=== PATIENT | male | born 1970 | race Caucasian/White ===

== ENCOUNTER 2024-09-07 12:07 | Inpatient (IN) | payer OTHER ==
--- NOTE | 2024-09-07 13:30 | ED ---
General Adult HPI - General Chief complaint: Arrhythmia/Palpitations Stated complaint: AFIB Time Seen by Provider: 09/07/24 12:09 Source: patient, EMS, RN notes reviewed Mode of arrival: EMS Limitations: no limitations - History of Present Illness Initial comments: Patient is a 54-year-old male present emergency department as a transfer from [place]. Patient went there for abdominal pain. Patient has been having symptoms for months, worse the past around 10 days. Decreased appetite and oral intake. While there patient was found to have cholecystitis, started on antibiotics. Patient also found to have new onset A-fib with RVR. Heparin and Cardizem were started. Review of Systems ROS Statement: Those systems with pertinent positive or pertinent negative responses have been documented in the HPI. ROS Other: All systems not noted in ROS Statement are negative. Constitutional: Denies: fever Eyes: Denies: eye pain Cardiovascular: Reports: dyspnea on exertion. Denies: palpitations Endocrine: Reports: fatigue Gastrointestinal: Reports: abdominal pain, nausea Past Medical History Past Medical History: Atrial Fibrillation Additional Past Medical History / Comment(s): cholecystitis Past Surgical History: Orthopedic Surgery Smoking Status: Never smoker Past Alcohol Use History: Occasional Past Drug Use History: None Reported General Exam Limitations: no limitations General appearance: alert, in no apparent distress Head exam: Present: normocephalic Eye exam: Present: normal appearance Neck exam: Present: normal inspection Respiratory exam: Present: normal lung sounds bilaterally Cardiovascular Exam: Present: tachycardia, irregular rhythm GI/Abdominal exam: Present: tenderness (Moderate tenderness right upper abdomen) Extremities exam: Present: normal inspection. Absent: pedal edema, calf tenderness Neurological exam: Present: alert Psychiatric exam: Present: normal affect, normal mood Skin exam: Present: normal color Course Vital Signs 09/07/24 09/07/24 12:21 13:00 Temperature 98.0 F Pulse Rate 123 H 113 H Respiratory 18 18 Rate Blood Pressure 123/101 124/100 O2 Sat by Pulse 94 L 95 Oximetry Medical Decision Making - Medical Decision Making Was pt. sent in by a medical professional or institution (, PA, CELL RELINER, urgent care, hospital, or long term...) When possible be specific @ -Patient was transferred from [place] Did you speak to anyone other than the patient for history (EMS, parent, family, police, friend...)? What history was obtained from this source @ -I did speak with transferring physician Did you review nursing and triage notes (agree or disagree)? Why? @ -I reviewed and agree with nursing and triage notes Were old charts reviewed (outside hosp., previous admission, EMS record, old EKG, old radiological studies, urgent care reports/EKG's, long term records)? Report findings @ -Chart reviewed from [facility] Differential Diagnosis (chest pain, altered mental status, abdominal pain women, abdominal pain men, vaginal bleeding, weakness, fever, dyspnea, syncope, headache, dizziness, GI bleed, back pain, seizure, CVA, palpatations, mental health, musculoskeletal)? @ -Differential Abdominal Pain Men: Appendicitis, cholecystitis, diverticulosis, ischemic bowel, pancreatitis, hepatitis, UTI, gastroenteritis, AAA, incarcerated hernia, bowel obstruction, constipation, inflammatory bowel, hepatitis, peptic ulcer disease, splenic infarction, perforated viscus, testicular torsion, this is not meant to be an all-inclusive list Differential Palpitations Ventricular arrhythmias, atrial arrhythmias, myocardial infarction, anemia, thyrotoxicosis, electrolyte imbalance, hypokalemia, pulmonary embolism, pulmonary disease, drugs, alcohol, anxiety, stress.... This is not meant to be an all-inclusive list. EKG interpreted by me (3pts min.). @ -As above X-rays interpreted by me (1pt min.). @ -None done CT interpreted by me (1pt min.). @ -None done U/S interpreted by me (1pt. min.). @ -None done What testing was considered but not performed or refused? (CT, X-rays, U/S, labs)? Why? @ -None What meds were considered but not given or refused? Why? @ -None Did you discuss the management of the patient with other professionals (professionals i.e. DrAlina, PA, CELL RELINER, lab, RT, psych nurse, social service assistant, finish filer, teacher, radio electronics officer, director of casework department)? Give summary @ -Case discussed with Dr. Barboza who will admit covering medical call Was smoking cessation discussed for >3mins.? @ -No Was critical care preformed (if so, how long)? @ -31 minutes critical care time Were there social determinants of health that impacted care today? How? (Homelessness, low income, unemployed, alcoholism, drug addiction, transportation, low edu. Level, literacy, decrease access to med. care, long term, rehab)? @ -No Was there de-escalation of care discussed even if they declined (Discuss DNR or withdrawal of care, Hospice)? DNR status @ -No What co-morbidities impacted this encounter? (DM, HTN, Smoking, COPD, CAD, Cancer, CVA, ARF, Chemo, Hep., AIDS, mental health diagnosis, sleep apnea, morbid obesity)? @ -None Was patient admitted / discharged? Hospital course, mention meds given and route, prescriptions, significant lab abnormalities, going to OR and other pertinent info. @ -Patient presents as a transfer from [place]. Patient has new onset A-fib with RVR. Heart rate between 108 and 150. Cardizem and heparin will be restarted. Patient also with cholecystitis. Patient was given antibiotics. Patient will be admitted with continue antibiotics and surgical consult. Patient is updated on plan. Admission orders written. Undiagnosed new problem with uncertain prognosis? @ -No Drug Therapy requiring intensive monitoring for toxicity (Heparin, Nitro, Insulin, Cardizem)? @ -Cardizem and heparin drips Were any procedures done? @ -No Diagnosis/symptom? @ -New onset A-fib with RVR, acute cholecystitis Acute, or Chronic, or Acute on Chronic? @ -Acute, acute Uncomplicated (without systemic symptoms) or Complicated (systemic symptoms)? @ -Default Side effects of treatment? @ -No Exacerbation, Progression, or Severe Exacerbation? @ -No Poses a threat to life or bodily function? How? (Chest pain, [place], [place], pneumonia, PE, COPD, DKA, ARF, appy, cholecystitis, CVA, Diverticulitis, Homicidal, Suicidal, threat to staff... and all critical care pts) @ -Threat to cardiac function Disposition Clinical Impression: Atrial fibrillation Disposition: ADMITTED IP TO THIS HOSP Is patient prescribed a controlled substance at d/c from ED?: No Referrals: None,Stated [Primary Care Provider] - 1-2 days Time of Disposition: 13:30
[2024-09-07] MEDS ORDERED: NALOXONE 0.4 MG/ML 1 ML VIAL IV PRN (13:33)
[2024-09-07] MEDS ORDERED: HYDROmorphone 1 MG/ML 1 ML SYRINGE IVP PRN (13:33)
[2024-09-07] MEDS ORDERED: ONDANSETRON 4 MG/2 ML VIAL IVP PRN (13:42)
[2024-09-07] MEDS: HYDROmorphone 0.5 MG/0.5 ML SYRINGE IVP PRN (13:47)
[2024-09-07] MEDS: HEPARIN SOD,PORK IN 0.45% NACL 25,000 UNIT in 0.45% NACL 1 250ML.BAG IV SCH (13:48)
[2024-09-07] MEDS: PANTOPRAZOLE 40 MG/10 ML VIAL IV SCH (13:56)
[2024-09-07] MEDS: SODIUM CHLORIDE 0.9% 1,000 ML IV SCH ×2 (13:58→14:21)
[2024-09-07] MEDS: DILTIAZEM 125 MG in DEXTROSE 5% IN WATER 100 ML IV SCH (14:17)
[2024-09-07] MEDS: metroNIDAZOLE-NS PMX 500 MG in SALINE 1 100ML.BAG IVPB SCH (16:15)
--- NOTE | 2024-09-07 17:05 | P.HPIM ---
History of Present Illness This is a pleasant 54 years old male with no significant past medical history. He has previous history of A-fib and squamous cell cancer of the throat in 2008. Presents because of he describes as stomach pain, 6/10 in the right upper quadrant nonradiating like someone punching him in the gut as he describes. He has not been eating for the last 3 days but with no vomiting. He reports diarrhea once a day Complains from exertional dyspnea but no chest pain no coughing No headache dizziness weakness numbness no dysuria urgency He drinks alcohol occasionally but he does not smoke or uses substances. He was transferred from [facility] Currently getting IV antibiotics and fluids and heparin Review of Systems Review of systems CONSTITUTIONAL: No fever, no malaise, no fatigue. HEENT: No recent visual problems or hearing problems. Denied any sore throat. CARDIOVASCULAR: No orthopnea, PND, no palpitations, no syncope. PULMONARY: no cough, no hemoptysis. GASTROINTESTINAL: As above. NEUROLOGICAL: No headaches, no weakness, no numbness. HEMATOLOGICAL: Denies any bleeding or petechiae. GENITOURINARY: Denies any burning micturition, frequency, or urgency. MUSCULOSKELETAL/RHEUMATOLOGICAL: Denies any joint pain, swelling, or any muscle pain. ENDOCRINE: Denies any polyuria or polydipsia. Past Medical History Past Medical History: Atrial Fibrillation, Cancer Additional Past Medical History / Comment(s): cholecystitis. squamous cell carcinoma of throat remission since 2007 or 2008 Past Surgical History: Orthopedic Surgery Smoking Status: Never smoker Past Alcohol Use History: Occasional Past Drug Use History: None Reported Medications and Allergies Home Medications Medication Instructions Recorded Confirmed Type No Known Home Medications 09/07/24 09/07/24 History Allergies Allergy/AdvReac Type Severity Reaction Status Date / Time Penicillins Allergy Unknown Verified 09/07/24 14:38 Physical Exam Vitals: Vital Signs Temp Pulse Resp BP Pulse Ox 09/07/24 15:30 122 H 18 116/81 95 09/07/24 15:00 114 H 18 116/70 94 L 09/07/24 14:30 123 H 17 118/95 94 L 09/07/24 14:00 124 H 16 131/100 95 09/07/24 13:30 128 H 19 128/98 96 09/07/24 13:15 120 H 18 122/98 95 09/07/24 13:00 113 H 18 124/100 95 09/07/24 12:21 98.0 F 123 H 18 123/101 94 L Intake and Output 09/07/24 09/07/24 09/07/24 06:59 14:59 22:59 Intake Total 6.583 Balance 6.583 Intake: Intake, IV Titration 6.583 Amount Diltiazem 125 mg In 6.583 Dextrose 5% in Water 100 ml @ 5 MG/HR 5 mls/hr IV .[facility] Rx#:[id number] Other: Weight 86.183 kg GENERAL: The patient is alert and oriented x3, not in any acute distress. Well developed, well nourished. HEENT: Pupils are round and equally reacting to light. EOMI. No scleral icterus. No conjunctival pallor. Normocephalic, atraumatic. No pharyngeal erythema. No thyromegaly. CARDIOVASCULAR: S1 and S2 present. No murmurs, rubs, or gallops. PULMONARY: Chest is clear to auscultation, no wheezing , no crackles. ABDOMEN: Soft, RUQ tenderness no rebound tenderness, nondistended, normoactive bowel sounds. No palpable organomegaly. MUSCULOSKELETAL: No joint swelling or deformity. EXTREMITIES: No cyanosis, clubbing, or pedal edema. NEUROLOGICAL: Gross neurological examination did not reveal any focal deficits. SKIN: No rashes. no petechiae. Assessment and Plan Assessment: Acute cholecystitis Atrial fibrillation History of squamous cancer of the throat in 2008, currently on remission Plan: Continue heparin drip Continue Cardizem drip Check echocardiogram Cardiology team consult Continue with antibiotic ceftriaxone and Flagyl Surgery team consult Bowel rest Pain management Labs and medication were reviewed.. Continue same treatment. Continue with symptomatic treatment. Resume home medication. Monitor labs and vitals. DVT and GI prophylaxis. Further recommendations as per clinical course of the patient DVT prophylaxis: heparin GI Prophylaxis: Pepcid PT/OT: Pending Prognosis is guarded
[2024-09-07] MEDS: HEPARIN SODIUM 1,000 UN/ML (10ML VL) IV PRN (20:37)
[2024-09-08 03:14] LABS: ALT 53.0 U/L (4-49); AST 47.0 U/L (17-59); Albumin 3.2 g/dL (3.5-5.0); Alkaline Phosphatase 49.0 U/L (38-126); Bilirubin, Delta 0.6 mg/dL (0.0-0.2); Bilirubin,Unconjugated 0.5 mg/dL (0.0-1.1); Total Protein 5.3 g/dL (6.3-8.2)
[2024-09-08 03:16] LABS: INR 1.3 (<1.2); Prothrombin Time 14.1 sec (10.0-12.5)
[2024-09-08 04:37] LABS: T4, Free (Free Thyroxine) 1.33 ng/dL (0.78-2.19)
[2024-09-08 07:33] LABS: Basophils # (A) 0.08 10*3/uL (0.00-0.10); Basophils % (A) 0.9 %; Eosinophils # (A) 0.09 10*3/uL (0.04-0.35); Eosinophils % (A) 1.0 %; HCT 50.1 % (39.6-50.0); HGB 16.8 g/dL (13.0-17.0); Lymphocytes # (A) 1.39 10*3/uL (0.90-5.00); Lymphocytes % (A) 15.1 %; MCH 31.7 pg (27.0-32.0); MCHC 33.5 g/dL (32.0-37.0); MCV 94.5 fL (80.0-97.0); Monocytes # (A) 0.89 10*3/uL (0.20-1.00); Monocytes % (A) 9.7 %; Neutrophils # (A) 6.70 10*3/uL (1.80-7.70); Neutrophils % (A) 72.9 %; Platelet Count 207 10*3/uL (140-440); RBC 5.30 10*6/uL (4.40-5.60); RDW 14.0 % (11.5-14.5); WBC 9.19 10*3/uL (4.50-10.00)
[2024-09-08 07:59] LABS: ALT 55 U/L (4-49); African American GFR (CKD) >90 (>60 ml/min/1.73 sqM); Albumin 3.4 g/dL (3.5-5.0); Anion Gap 13 mmol/L; Blood Urea Nitrogen 17 mg/dL (9-20); Calcium 8.4 mg/dL (8.4-10.2); Carbon Dioxide 15 mmol/L (22-30); Chloride 109 mmol/L (98-107); Glucose 82 mg/dL (74-99); Non-African American GFR(CKD) >90 (>60 ml/min/1.73 sqM); Sodium 137 mmol/L (137-145); Total Protein 5.6 g/dL (6.3-8.2)
[2024-09-08 08:05] LABS: AST 48 U/L (17-59); Magnesium 1.8 mg/dL (1.6-2.3); Potassium 4.5 mmol/L (3.5-5.1)
[2024-09-08 08:06] LABS: Alkaline Phosphatase 50 U/L (38-126)
--- NOTE | 2024-09-08 09:24 | US ---
EXAMINATION TYPE: US abdomen limited DATE OF EXAM: 09/08/2024 COMPARISON: NONE CLINICAL INDICATION: Male, 54 years old with history of Cholecystitis; Pain TECHNIQUE: Grayscale and color Doppler imaging of the right upper quadrant was performed. FINDINGS: EXAM MEASUREMENTS: Liver Length: 18.1 cm Gallbladder Wall: 0.8 cm CBD: 0.5 cm Right Kidney: 10.7 x 5.4 x 5.4 cm Pancreas: Echogenic in appearance. Main pancreatic duct = 3.8 mm. Tail obscured by overlying bowel gas Liver: Enlarged in size. Free fluid seen adjacent to liver. Gallbladder: Two mobile stones seen = 0.9 cm and 0.8 cm. Focal wall thickening Evidence for sonographic Merida's sign: neg CBD: wnl Right Kidney: upper lateral anechoic area = 2.0 x 1.6 x 1.8 cm IMPRESSION: Cholelithiasis with Diffuse wall thickening of the gallbladder which can be seen in systemic causes. Correlate for upper quadrant pain. [facility], , 09/08/2024 9:22 AM
--- NOTE | 2024-09-08 10:56 | P.GSCN ---
History of Present Illness Consult date: 09/08/24 History of present illness: 54-year-old male presented to the emergency department from outside facility secondary to history of cholecystitis and new onset atrial fibrillation with RVR. He states that he has had issues with his gallbladder over the past 2 years, however over the past few weeks pain has significantly increased. He has been unable to eat secondary to increase of pain after diet. He has had nausea. Denies any significant changes in bowel function. He is found to have atrial fibrillation with RVR and was started on heparin drip and Cardizem drip. He has been started on IV antibiotics. Review of Systems All systems: negative Past Medical History Past Medical History: Atrial Fibrillation, Cancer Additional Past Medical History / Comment(s): cholecystitis. squamous cell carcinoma of throat remission since 2007 or 2008 History of Any Multi-Drug Resistant Organisms: None Reported Past Surgical History: Orthopedic Surgery Past Anesthesia/Blood Transfusion Reactions: No Reported Reaction Past Psychological History: No Psychological Hx Reported Smoking Status: Never smoker Past Alcohol Use History: Occasional Past Drug Use History: None Reported - Past Family History Mother Family Medical History: Diabetes Mellitus Father Family Medical History: Coronary Artery Disease (CAD) Medications and Allergies Home Medications Medication Instructions Recorded Confirmed Type No Known Home Medications 09/07/24 09/07/24 History Allergies Allergy/AdvReac Type Severity Reaction Status Date / Time Penicillins Allergy Unknown Verified 09/07/24 14:38 Surgical - Exam Osteopathic Statement: *. No significant issues noted on an osteopathic structural exam other than those noted in the History and Physical/Consult. Vital Signs Temp Pulse Resp BP Pulse Ox 98.0 F 123 H 18 123/101 94 L 09/07/24 12:21 09/07/24 12:21 09/07/24 12:21 09/07/24 12:21 09/07/24 12:21 - General no distress - Eyes normal ocular movement - Neck trachea midline - Respiratory normal respiratory effort - Abdomen Soft, minimal tenderness to right upper quadrant, nondistended, no rebound or guarding Results - Labs 09/08/24 06:55 09/08/24 06:55 Abnormal Lab Results - Last 24 Hours (Table) 09/07/24 09/08/24 09/08/24 Range/Units 19:49 02:44 02:44 Hct (39.6-50.0) % PT (10.0-12.5) sec INR (<1.2) APTT 34.2 H 49.1 H (22.0-30.0) sec Delta Bilirubin 0.6 H (0.0-0.2) mg/dL ALT 53 H (4-49) U/L Total Protein 5.3 L (6.3-8.2) g/dL Albumin 3.2 L (3.5-5.0) g/dL 09/08/24 09/08/24 Range/Units 02:44 06:55 Hct 50.1 H (39.6-50.0) % PT 14.1 H (10.0-12.5) sec INR 1.3 H (<1.2) APTT (22.0-30.0) sec Delta Bilirubin (0.0-0.2) mg/dL ALT (4-49) U/L Total Protein (6.3-8.2) g/dL Albumin (3.5-5.0) g/dL Diabetes panel 09/08/24 Range/Units 02:44 AST 47 (17-59) U/L ALT 53 H (4-49) U/L Alkaline Phosphatase 49 (38-126) U/L Total Protein 5.3 L (6.3-8.2) g/dL Albumin 3.2 L (3.5-5.0) g/dL Thyroid panel 09/08/24 Range/Units 02:44 TSH 2.050 (0.465-4.680) mIU/L Calcium panel 09/08/24 Range/Units 02:44 Albumin 3.2 L (3.5-5.0) g/dL Pituitary panel 09/08/24 Range/Units 02:44 TSH 2.050 (0.465-4.680) mIU/L Adrenal panel 09/08/24 Range/Units 02:44 Total Bilirubin 1.1 (0.2-1.3) mg/dL AST 47 (17-59) U/L ALT 53 H (4-49) U/L Alkaline Phosphatase 49 (38-126) U/L Total Protein 5.3 L (6.3-8.2) g/dL Albumin 3.2 L (3.5-5.0) g/dL Assessment and Plan Plan: 54-year-old male with concern for acute cholecystitis. Imaging has not been transferred with the patient and I will obtain ultrasound of the gallbladder. Will await cardiology recommendations on anticoagulation and Cardizem drip. Continue IV antibiotics. Patient can have clear liquid diet today. Further surgical recommendations based on cardiology evaluation and further imaging.
[2024-09-08] MEDS: METOPROLOL TARTRATE 50 MG TAB PO STA (11:21)
[2024-09-08] MEDS: DILTIAZEM ORAL 30 MG TAB PO SCH (11:21)
[2024-09-08] MEDS: MAGNESIUM SULFATE-D5W PMX 1 GM in DEXTROSE/WATER 1 100ML.BAG IVPB SCH (11:21)
[2024-09-08 11:42] LABS: Magnesium 1.8 mg/dL (1.6-2.3)
[2024-09-08 11:46] LABS: NT-Pro-B-Type Natriuretic Pept 3630 pg/mL
--- NOTE | 2024-09-08 13:14 | P.CRDCN ---
History of Present Illness Consult date: 09/08/24 History of present illness: HISTORY OF PRESENTING ILLNESS: 54-year-old not known to cardiology service. He went to [facility] because of increased worsening abdominal discomfort. At the initial evaluation he was noticed to have concerns of acute cholecystitis along with atrial fibrillation. For this he was sent to [facility]. At the time of evaluation he is in rate controlled atrial fibrillation. He is on Cardizem drip. Patient reports that he has not been aware of atrial fibrillation in the past however over the last 2 to 3 months he has reported increased worsening fatigue and on and off palpitations. He reports that his palpitation has been going on for a year on and off but has got more frequent and intense lately. ................... ................................................................................ ........................................... Pertient Labs: Troponins were negative x 3, NT-proBNP 3630, TSH was 2.05, normal T4 and T3 magnesium 1.8 EKG: Atrial fibrillation .............................................. ................................................................................ ................ Prior cardiac testing: [ ] ........................................................................... ................................................................... REVIEW OF SYSTEMS: 14 point review of system is negative except what is mentioned above in HPI. .................................... ................................................................................ .......................... PHYSICAL EXAMINATION: Neck: Brisk carotid upstroke, no jugular venous distention. Lungs: Clear to auscultation. Heart: Irregular rate and rhythm, S1-S2, , no murmur or rub. Abdomen: Soft mild right upper quadrant tenderness, positive bowel sounds. Extremities: No edema, intact distal pulses. Neuro: Alert, oritented, no focal deficits. Detailed neuro exam was not performed. ................ ................................................................................ .............................................. ASSESSMENT: # Preoperative cardiac risk assessment # Acute cholecystitis # Atrial fibrillation with RVR on admission. Currently rate controlled. First diagnosed 11/2024. 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 If echo is normal, discontinue heparin drip and start aspirin 81 mg instead because of low [id number]. Discontinue Cardizem drip. Start Cardizem CD30 milligrams every 6 hour, metoprolol 50 mg daily Obtain echocardiogram Obtain A1c levels 2 g magnesium sulfate IV Will provide perioperative cardiac risk assessment based on echocardiogram. Paul Rico MD, FACC, VI Past Medical History Past Medical History: Atrial Fibrillation, Cancer Additional Past Medical History / Comment(s): cholecystitis. squamous cell carcinoma of throat remission since 2007 or 2008 History of Any Multi-Drug Resistant Organisms: None Reported Past Surgical History: Orthopedic Surgery Past Anesthesia/Blood Transfusion Reactions: No Reported Reaction Past Psychological History: No Psychological Hx Reported Smoking Status: Never smoker Past Alcohol Use History: Occasional Past Drug Use History: None Reported - Past Family History Mother Family Medical History: Diabetes Mellitus Father Family Medical History: Coronary Artery Disease (CAD) Medications and Allergies Home Medications Medication Instructions Recorded Confirmed Type No Known Home Medications 09/07/24 09/07/24 History Allergies Allergy/AdvReac Type Severity Reaction Status Date / Time Penicillins Allergy Unknown Verified 09/07/24 14:38 Physical Exam Vitals: Vital Signs Temp Pulse Pulse Pulse Resp BP BP 09/08/24 11:20 97.6 F 92 16 121/83 09/08/24 09:25 97.7 F 85 16 146/85 09/08/24 04:00 97.3 F L 106 H 16 111/72 09/08/24 00:00 97.3 F L 93 16 104/68 09/07/24 22:23 97.6 F 106 H 16 133/90 09/07/24 20:33 82 16 104/92 09/07/24 18:17 105 H 18 117/92 09/07/24 18:00 104 H 22 109/93 09/07/24 17:30 101 H 21 106/88 09/07/24 17:00 102 H 16 116/98 09/07/24 16:30 118 H 17 134/116 09/07/24 16:00 149 H 17 109/94 09/07/24 15:30 122 H 18 116/81 09/07/24 15:00 114 H 18 116/70 09/07/24 14:30 123 H 17 118/95 09/07/24 14:00 124 H 16 131/100 09/07/24 13:30 128 H 19 128/98 09/07/24 13:15 120 H 18 122/98 Pulse Ox 09/08/24 11:20 95 09/08/24 09:25 96 09/08/24 04:00 92 L 09/08/24 00:00 94 L 09/07/24 22:23 93 L 09/07/24 20:33 93 L 09/07/24 18:17 92 L 09/07/24 18:00 94 L 09/07/24 17:30 94 L 09/07/24 17:00 94 L 09/07/24 16:30 94 L 09/07/24 16:00 95 09/07/24 15:30 95 09/07/24 15:00 94 L 09/07/24 14:30 94 L 09/07/24 14:00 95 09/07/24 13:30 96 09/07/24 13:15 95 Intake and Output 09/07/24 09/08/24 09/08/24 22:59 06:59 14:59 Intake Total 91.729 406.917 183.861 Output Total 0 Balance 91.729 406.917 183.861 Intake: IV 10 10 Invasive Line 2 10 10 Intake, IV Titration 91.729 396.917 173.861 Amount Diltiazem 125 mg In 24.083 171.917 Dextrose 5% in Water 100 ml @ 5 MG/HR 5 mls/hr IV .Q24H [facility] Rx#:[id number] Heparin Sod,Pork in 0.45% 67.646 173.861 NaCl 25,000 unit In 0.45 % NaCl 1 250ml.bag @ 11.6 UNITS/KG/HR 9.997 mls/hr IV .Q24H [facility] Rx#: [id number] Sodium Chloride 0.9% 1, 225 000 ml @ 75 mls/hr IV . [id number] [facility] Rx#:[id number] Output: Urine 0 Other: Voiding Method Toilet Toilet # Voids 1 Weight 86.183 kg 88 kg Results 09/08/24 06:55 09/08/24 06:55 Cardiac Enzymes 09/07/24 09/07/24 09/08/24 Range/Units 14:10 19:49 02:44 AST 47 (17-59) U/L Troponin I 0.014 0.018 (0.000-0.034) ng/mL 09/08/24 09/08/24 Range/Units 06:55 10:43 AST 48 (17-59) U/L Troponin I <0.012 (0.000-0.034) ng/mL Coagulation 09/07/24 09/08/24 09/08/24 Range/Units 19:49 02:44 02:44 PT 14.1 H (10.0-12.5) sec APTT 34.2 H 49.1 H (22.0-30.0) sec CBC 09/08/24 Range/Units 06:55 WBC 9.19 (4.50-10.00) 10*3/uL RBC 5.30 (4.40-5.60) 10*6/uL Hgb 16.8 (13.0-17.0) g/dL Hct 50.1 H (39.6-50.0) % Plt Count 207 (140-440) 10*3/uL Comprehensive Metabolic Panel 09/08/24 09/08/24 Range/Units 02:44 06:55 Sodium 137 (137-145) mmol/L Potassium 4.5 (3.5-5.1) mmol/L Chloride 109 H (98-107) mmol/L Carbon Dioxide 15 L (22-30) mmol/L BUN 17 (9-20) mg/dL Creatinine 0.75 (0.66-1.25) mg/dL Glucose 82 (74-99) mg/dL Calcium 8.4 (8.4-10.2) mg/dL Unconjugated Bilirubin 0.5 (0.0-1.1) mg/dL AST 47 48 (17-59) U/L ALT 53 H 55 H (4-49) U/L Alkaline Phosphatase 49 50 (38-126) U/L Total Protein 5.3 L 5.6 L (6.3-8.2) g/dL Albumin 3.2 L 3.4 L (3.5-5.0) g/dL Current Medications Generic Name Dose Route Start Last Admin Trade Name Freq PRN Reason Stop Dose Admin Diltiazem HCl 30 mg 09/08/24 11:00 09/08/24 11:21 Diltiazem Oral 30 Mg Tab PO 30 mg QID [facility] Administration Heparin Sodium (Porcine) 0 unit 09/07/24 13:32 09/07/24 20:37 Heparin Sodium 1,000 Un/Ml (10ml Vl) IV 2,154.575 unit PER PROTOCOL PRN Administration Low PTT Protocol Hydromorphone HCl 0.5 mg 09/07/24 13:33 09/07/24 13:47 Hydromorphone 0.5 Mg/0.5 Ml Syringe IVP 0.5 mg Q3HR PRN Administration Moderate Pain (Scale 4 to 6) Hydromorphone HCl 1 mg 09/07/24 13:33 Hydromorphone 1 Mg/Ml 1 Ml Syringe IVP Q3HR PRN Severe Pain (Scale 7 to 10) Heparin Sodium/Sodium Chloride 250 mls @ 9.997 mls/hr 09/07/24 13:45 09/08/24 11:24 25,000 unit/ Sodium Chloride IV 13.6 units/kg/hr .Q24H [facility] 11.721 mls/hr Administration Protocol 11.6 UNITS/KG/HR Metronidazole 500 mg/ IV 100 mls @ 100 mls/hr 09/07/24 16:00 09/08/24 09:27 Solution IVPB 100 mls/hr Q8HR [facility] Administration Protocol Ceftriaxone Sodium 2 gm/ 50 mls @ 100 mls/hr 09/07/24 14:00 09/07/24 13:56 Sodium Chloride IVPB 100 mls/hr Q24H [facility] Administration Protocol Sodium Chloride 1,000 mls @ 130 mls/hr 09/07/24 13:45 09/08/24 04:09 Saline 0.9% IV Not Given .Q7H42M [facility] Sodium Chloride 1,000 mls @ 75 mls/hr 09/07/24 13:45 09/08/24 03:43 Saline 0.9% IV 75 mls/hr .Q25P85H [facility] Administration Metoprolol Succinate 50 mg 09/08/24 13:15 Metoprolol Succinate (Er) 25 Mg Tab.Er.24h PO DAILY [facility] Naloxone HCl 0.2 mg 09/07/24 13:33 Naloxone 0.4 Mg/Ml 1 Ml Vial IV Q2M PRN Opioid Reversal Ondansetron HCl 4 mg 09/07/24 13:42 Ondansetron 4 Mg/2 Ml Vial IVP Q6H PRN Nausea Pantoprazole Sodium 40 mg 09/07/24 13:45 09/08/24 09:26 Pantoprazole 40 Mg/10 Ml Vial IV 40 mg DAILY [facility] Administration Intake and Output 09/07/24 09/08/24 09/08/24 22:59 06:59 14:59 Intake Total 91.729 406.917 183.861 Output Total 0 Balance 91.729 406.917 183.861 Intake: IV 10 10 Invasive Line 2 10 10 Intake, IV Titration 91.729 396.917 173.861 Amount Diltiazem 125 mg In 24.083 171.917 Dextrose 5% in Water 100 ml @ 5 MG/HR 5 mls/hr IV .Q24H [facility] Rx#:[id number] Heparin Sod,Pork in 0.45% 67.646 173.861 NaCl 25,000 unit In 0.45 % NaCl 1 250ml.bag @ 11.6 UNITS/KG/HR 9.997 mls/hr IV .Q24H [facility] Rx#: [id number] Sodium Chloride 0.9% 1, 225 000 ml @ 75 mls/hr IV . [id number] [facility] Rx#:[id number] Output: Urine 0 Other: Voiding Method Toilet Toilet # Voids 1 Weight 86.183 kg 88 kg 09/08/24 06:55 09/08/24 06:55
[2024-09-08] MEDS ORDERED: fentaNYL (PF) 50 MCG/ML 2 ML AMP IVP PRN (14:00)
[2024-09-08] MEDS ORDERED: MIDAZOLAM 2 MG/2 ML VIAL IV PRN (14:00)
[2024-09-08 15:26] LABS: Cholesterol 134.00 mg/dL (0.00-200.00); HDL Cholesterol 39.80 mg/dL (40.00-60.00); LDL Cholesterol,Calculated 81.5 mg/dL (0.0-131.0); Triglycerides 63.30 mg/dL (0.00-149.00); VLDL Calculation 12.66 mg/dL (5.00-40.00)
[2024-09-08] MEDS: FUROSEMIDE 40 MG TAB PO SCH (15:59)
[2024-09-08] MEDS: AMIODARONE 200 MG TAB PO SCH (15:59)
[2024-09-08] MEDS: METOPROLOL SUCCINATE (ER) 50 MG TAB.ER.24H PO SCH (16:14)
--- NOTE | 2024-09-09 01:03 | P.PN ---
Subjective This is a pleasant 54 years old male with no significant past medical history. He has previous history of A-fib and squamous cell cancer of the throat in 2008. Presents because of he describes as stomach pain, 6/10 in the right upper quadrant nonradiating like someone punching him in the gut as he describes. He has not been eating for the last 3 days but with no vomiting. He reports diarrhea once a day Complains from exertional dyspnea but no chest pain no coughing No headache dizziness weakness numbness no dysuria urgency He drinks alcohol occasionally but he does not smoke or uses substances. He was transferred from [facility] Currently getting IV antibiotics and fluids and heparin 09/08 Patient with GI symptoms: Nausea Unable to eat Surgery team plan for cardiology clearance. Patient present with A-fib, Cardizem switched to oral medication with Cardizem and metoprolol Still on IV heparin pending echocardiogram Review of systems CONSTITUTIONAL: No fever, no malaise, no fatigue. HEENT: No recent visual problems or hearing problems. Denied any sore throat. CARDIOVASCULAR: No orthopnea, PND, no palpitations, no syncope. GENITOURINARY: Denies any burning micturition, frequency, or urgency. MUSCULOSKELETAL/RHEUMATOLOGICAL: Denies any joint pain, swelling, or any muscle pain. ENDOCRINE: Denies any polyuria or polydipsia. Active Medications Generic Name Dose Route Start Last Admin Trade Name Willa PRN Reason Stop Dose Admin Amiodarone HCl 400 mg 09/08/24 14:00 09/08/24 22:01 Amiodarone 200 Mg Tab PO 400 mg BID [facility] Administration Benzocaine 1 each 09/08/24 14:00 Benzocaine [place] 1 Each MM 09/09/24 08:00 TID PRN Skin Irritation Fentanyl Citrate 50 mcg 09/08/24 14:00 Fentanyl (Pf) 50 Mcg/Ml 2 Ml Amp IVP 09/09/24 08:00 ONCE PRN Pre-Op Furosemide 40 mg 09/08/24 14:00 09/08/24 15:59 Furosemide 40 Mg Tab PO 40 mg DAILY [facility] Administration Heparin Sodium (Porcine) 0 unit 09/07/24 13:32 09/07/24 20:37 Heparin Sodium 1,000 Un/Ml (10ml Vl) IV 2,154.575 unit PER PROTOCOL PRN Administration Low PTT Protocol Hydromorphone HCl 0.5 mg 09/07/24 13:33 09/07/24 13:47 Hydromorphone 0.5 Mg/0.5 Ml Syringe IVP 0.5 mg Q3HR PRN Administration Moderate Pain (Scale 4 to 6) Hydromorphone HCl 1 mg 09/07/24 13:33 Hydromorphone 1 Mg/Ml 1 Ml Syringe IVP Q3HR PRN Severe Pain (Scale 7 to 10) Heparin Sodium/Sodium Chloride 250 mls @ 9.997 mls/hr 09/07/24 13:45 09/08/24 11:24 25,000 unit/ Sodium Chloride IV 13.6 units/kg/hr .Q24H [facility] 11.721 mls/hr Administration Protocol 11.6 UNITS/KG/HR Metronidazole 500 mg/ IV 100 mls @ 100 mls/hr 09/07/24 16:00 09/09/24 00:05 Solution IVPB 100 mls/hr Q8HR [facility] Administration Protocol Ceftriaxone Sodium 2 gm/ 50 mls @ 100 mls/hr 09/07/24 14:00 09/08/24 15:58 Sodium Chloride IVPB 100 mls/hr Q24H [facility] Administration Protocol Metoprolol Succinate 50 mg 09/08/24 13:30 09/08/24 16:14 Metoprolol Succinate (Er) 50 Mg Tab.Er.24h PO 50 mg DAILY [facility] Administration Midazolam HCl 1 mg 09/08/24 14:00 Midazolam 2 Mg/2 Ml Vial IV 09/09/24 08:00 ONCE PRN Pre-Op Naloxone HCl 0.2 mg 09/07/24 13:33 Naloxone 0.4 Mg/Ml 1 Ml Vial IV Q2M PRN Opioid Reversal Ondansetron HCl 4 mg 09/07/24 13:42 Ondansetron 4 Mg/2 Ml Vial IVP Q6H PRN Nausea Pantoprazole Sodium 40 mg 09/07/24 13:45 09/08/24 09:26 Pantoprazole 40 Mg/10 Ml Vial IV 40 mg DAILY [facility] Administration Objective - Vital Signs Vital signs: Vital Signs Temp 97.6 F 09/08/24 11:20 Pulse 92 09/08/24 11:20 Resp 16 09/08/24 11:20 BP 121/83 09/08/24 11:20 Pulse Ox 95 09/08/24 11:20 FiO2 Intake & Output 09/07/24 09/08/24 09/08/24 18:59 06:59 18:59 Intake Total 24.083 474.563 183.861 Output Total 0 Balance 24.083 474.563 183.861 Weight 86.183 kg 88 kg Intake: IV 10 10 Invasive Line 2 10 10 Intake, IV Titration 24.3 464.563 173.861 Amount Diltiazem 125 mg In 24.083 171.917 Dextrose 5% in Water 100 ml @ 5 MG/HR 5 mls/hr IV .Q24H [facility] Rx#:[id number] Heparin Sod,Pork in 0.45% 67.646 173.861 NaCl 25,000 unit In 0.45 % NaCl 1 250ml.bag @ 11.6 UNITS/KG/HR 9.997 mls/hr IV .Q24H [facility] Rx#: [id number] Sodium Chloride 0.9% 1, 225 000 ml @ 75 mls/hr IV . [id number] [facility] Rx#:[id number] Output: Urine 0 Other: Voiding Method Toilet Toilet # Voids 1 - Exam GENERAL: The patient is alert and oriented x3, not in any acute distress. Well developed, well nourished. HEENT: Pupils are round and equally reacting to light. EOMI. No scleral icterus. No conjunctival pallor. Normocephalic, atraumatic. No pharyngeal erythema. No thyromegaly. CARDIOVASCULAR: S1 and S2 present. No murmurs, rubs, or gallops. PULMONARY: Chest is clear to auscultation, no wheezing , no crackles. ABDOMEN: Soft, nontender, nondistended, normoactive bowel sounds. No palpable organomegaly. MUSCULOSKELETAL: No joint swelling or deformity. EXTREMITIES: No cyanosis, clubbing, or pedal edema. NEUROLOGICAL: Gross neurological examination did not reveal any focal deficits. SKIN: No rashes. no petechiae. - Labs CBC & Chem 7: 09/08/24 06:55 09/08/24 06:55 Labs: Abnormal Lab Results - Last 24 Hours (Table) 09/07/24 09/08/24 09/08/24 Range/Units 19:49 02:44 02:44 Hct (39.6-50.0) % PT (10.0-12.5) sec INR (<1.2) APTT 34.2 H 49.1 H (22.0-30.0) sec Chloride (98-107) mmol/L Carbon Dioxide (22-30) mmol/L Delta Bilirubin 0.6 H (0.0-0.2) mg/dL ALT 53 H (4-49) U/L Total Protein 5.3 L (6.3-8.2) g/dL Albumin 3.2 L (3.5-5.0) g/dL 09/08/24 09/08/24 09/08/24 Range/Units 02:44 06:55 06:55 Hct 50.1 H (39.6-50.0) % PT 14.1 H (10.0-12.5) sec INR 1.3 H (<1.2) APTT (22.0-30.0) sec Chloride 109 H (98-107) mmol/L Carbon Dioxide 15 L (22-30) mmol/L Delta Bilirubin (0.0-0.2) mg/dL ALT 55 H (4-49) U/L Total Protein 5.6 L (6.3-8.2) g/dL Albumin 3.4 L (3.5-5.0) g/dL Assessment and Plan Assessment: Acute cholecystitis Atrial fibrillation History of squamous cancer of the throat in 2008, currently on remission Plan: Continue heparin drip Continue oral Cardizem and metoprolol Check echocardiogram Cardiology team consult Continue with antibiotic ceftriaxone and Flagyl Surgery team consult Bowel rest Pain management Labs and medication were reviewed.. Continue same treatment. Continue with symptomatic treatment. Resume home medication. Monitor labs and vitals. DVT and GI prophylaxis. Further recommendations as per clinical course of the patient DVT prophylaxis: heparin GI Prophylaxis: Pepcid PT/OT: Pending Prognosis is guarded
[2024-09-09 06:11] LABS: Basophils # (A) 0.07 10*3/uL (0.00-0.10); Basophils % (A) 0.9 %; Eosinophils # (A) 0.06 10*3/uL (0.04-0.35); Eosinophils % (A) 0.8 %; HCT 46.5 % (39.6-50.0); HGB 15.8 g/dL (13.0-17.0); Lymphocytes # (A) 1.46 10*3/uL (0.90-5.00); Lymphocytes % (A) 19.3 %; MCH 31.9 pg (27.0-32.0); MCHC 34.0 g/dL (32.0-37.0); MCV 93.9 fL (80.0-97.0); Monocytes # (A) 0.82 10*3/uL (0.20-1.00); Monocytes % (A) 10.8 %; Neutrophils # (A) 5.13 10*3/uL (1.80-7.70); Neutrophils % (A) 67.7 %; Platelet Count 192 10*3/uL (140-440); RBC 4.95 10*6/uL (4.40-5.60); RDW 13.7 % (11.5-14.5); WBC 7.58 10*3/uL (4.50-10.00)
[2024-09-09 06:34] LABS: African American GFR (CKD) >90 (>60 ml/min/1.73 sqM); Anion Gap 11 mmol/L; Blood Urea Nitrogen 16 mg/dL (9-20); Calcium 8.9 mg/dL (8.4-10.2); Carbon Dioxide 19 mmol/L (22-30); Chloride 105 mmol/L (98-107); Glucose 93 mg/dL (74-99); Non-African American GFR(CKD) 89 (>60 ml/min/1.73 sqM); Potassium 3.9 mmol/L (3.5-5.1); Sodium 135 mmol/L (137-145)
--- NOTE | 2024-09-09 08:50 | P.PN ---
Subjective This is a pleasant 54 years old male with no significant past medical history. He has previous history of A-fib and squamous cell cancer of the throat in 2008. Presents because of he describes as stomach pain, 6/10 in the right upper quadrant nonradiating like someone punching him in the gut as he describes. He has not been eating for the last 3 days but with no vomiting. He reports diarrhea once a day Complains from exertional dyspnea but no chest pain no coughing No headache dizziness weakness numbness no dysuria urgency He drinks alcohol occasionally but he does not smoke or uses substances. He was transferred from [facility] Currently getting IV antibiotics and fluids and heparin 09/08 Patient with GI symptoms: Nausea Unable to eat Surgery team plan for cardiology clearance. Patient present with A-fib, Cardizem switched to oral medication with Cardizem and metoprolol Still on IV heparin pending echocardiogram 09/09 Patient sitting at bedside with no chest pain or dyspnea No abdominal pain or significant tenderness He is getting heparin drip and normal saline 75 mL/h. Also is on ceftriaxone and Flagyl. Pending echocardiogram to decide about heparin drip preop evaluation Discussed plan with the patient and he is agreeable Review of systems CONSTITUTIONAL: No fever, no malaise, no fatigue. HEENT: No recent visual problems or hearing problems. Denied any sore throat. CARDIOVASCULAR: No orthopnea, PND, no palpitations, no syncope. GENITOURINARY: Denies any burning micturition, frequency, or urgency. MUSCULOSKELETAL/RHEUMATOLOGICAL: Denies any joint pain, swelling, or any muscle pain. ENDOCRINE: Denies any polyuria or polydipsia. Active Medications Generic Name Dose Route Start Last Admin Trade Name Willa PRN Reason Stop Dose Admin Amiodarone HCl 400 mg 09/08/24 14:09/08/24 22:01 Amiodarone 200 Mg Tab PO 400 mg BID [facility] Administration Furosemide 40 mg 09/08/24 14:00 09/08/24 15:59 Furosemide 40 Mg Tab PO 40 mg DAILY [facility] Administration Heparin Sodium (Porcine) 0 unit 09/07/24 13:32 09/07/24 20:37 Heparin Sodium 1,000 Un/Ml (10ml Vl) IV 2,154.575 unit PER PROTOCOL PRN Administration Low PTT Protocol Hydromorphone HCl 0.5 mg 09/07/24 13:33 09/07/24 13:47 Hydromorphone 0.5 Mg/0.5 Ml Syringe IVP 0.5 mg Q3HR PRN Administration Moderate Pain (Scale 4 to 6) Hydromorphone HCl 1 mg 09/07/24 13:33 Hydromorphone 1 Mg/Ml 1 Ml Syringe IVP Q3HR PRN Severe Pain (Scale 7 to 10) Heparin Sodium/Sodium Chloride 250 mls @ 9.997 mls/hr 09/07/24 13:45 09/08/24 11:24 25,000 unit/ Sodium Chloride IV 13.6 units/kg/hr .Q24H [facility] 11.721 mls/hr Administration Protocol 11.6 UNITS/KG/HR Metronidazole 500 mg/ IV 100 mls @ 100 mls/hr 09/07/24 16:00 09/09/24 00:05 Solution IVPB 100 mls/hr Q8HR [facility] Administration Protocol Ceftriaxone Sodium 2 gm/ 50 mls @ 100 mls/hr 09/07/24 14:00 09/08/24 15:58 Sodium Chloride IVPB 100 mls/hr Q24H [facility] Administration Protocol Metoprolol Succinate 50 mg 09/08/24 13:30 09/08/24 16:14 Metoprolol Succinate (Er) 50 Mg Tab.Er.24h PO 50 mg DAILY [facility] Administration Naloxone HCl 0.2 mg 09/07/24 13:33 Naloxone 0.4 Mg/Ml 1 Ml Vial IV Q2M PRN Opioid Reversal Ondansetron HCl 4 mg 09/07/24 13:42 Ondansetron 4 Mg/2 Ml Vial IVP Q6H PRN Nausea Pantoprazole Sodium 40 mg 09/07/24 13:45 09/08/24 09:26 Pantoprazole 40 Mg/10 Ml Vial IV 40 mg DAILY [facility] Administration Objective - Vital Signs Vital signs: Vital Signs Temp 97.6 F 09/09/24 03:13 Pulse 97 09/09/24 03:13 Resp 16 09/09/24 03:13 BP 103/78 09/09/24 03:13 Pulse Ox 94 L 09/09/24 03:13 FiO2 Intake & Output 09/08/24 09/09/24 09/09/24 18:59 06:59 18:59 Intake Total 433.861 Balance 433.861 Weight 88.2 kg Intake: IV 20 Invasive Line 2 20 Intake, IV Titration 173.861 Amount Heparin Sod,Pork in 0.45% 173.861 NaCl 25,000 unit In 0.45 % NaCl 1 250ml.bag @ 11.6 UNITS/KG/HR 9.997 mls/hr IV .Q24H [facility] Rx#: [id number] Oral 240 Other: Voiding Method Toilet Toilet # Voids 2 - Exam GENERAL: The patient is alert and oriented x3, not in any acute distress. Well developed, well nourished. HEENT: Pupils are round and equally reacting to light. EOMI. No scleral icterus. No conjunctival pallor. Normocephalic, atraumatic. No pharyngeal erythema. No thyromegaly. CARDIOVASCULAR: S1 and S2 present. No murmurs, rubs, or gallops. PULMONARY: Chest is clear to auscultation, no wheezing , no crackles. ABDOMEN: Soft, nontender, nondistended, normoactive bowel sounds. No palpable organomegaly. MUSCULOSKELETAL: No joint swelling or deformity. EXTREMITIES: No cyanosis, clubbing, or pedal edema. NEUROLOGICAL: Gross neurological examination did not reveal any focal deficits. SKIN: No rashes. no petechiae. - Labs CBC & Chem 7: 09/09/24 05:15 09/09/24 05:15 Labs: Abnormal Lab Results - Last 24 Hours (Table) 09/08/24 09/09/24 09/09/24 Range/Units 10:43 01:37 05:15 APTT 51.1 H (22.0-30.0) sec Sodium 135 L (137-145) mmol/L Carbon Dioxide 19 L (22-30) mmol/L HDL Cholesterol 39.80 L (40.00-60.00) mg/dL Assessment and Plan Assessment: Acute cholecystitis Atrial fibrillation History of squamous cancer of the throat in 2008, currently on remission Plan: Continue heparin drip Continue oral Cardizem and metoprolol Check echocardiogram Cardiology team consult Continue with antibiotic ceftriaxone and Flagyl Surgery team consult Bowel rest Pain management Labs and medication were reviewed.. Continue same treatment. Continue with symptomatic treatment. Resume home medication. Monitor labs and vitals. DVT and GI prophylaxis. Further recommendations as per clinical course of the patient DVT prophylaxis: heparin GI Prophylaxis: Pepcid PT/OT: Pending Prognosis is guarded
[2024-09-09] MEDS ORDERED: METOPROLOL SUCCINATE (ER) 25 MG TAB.ER.24H PO SCH (09:00)
[2024-09-09] MEDS: SODIUM CHLORIDE 0.9% 500 ML 500 ML IV ONE (10:00)
[2024-09-09] MEDS: BENZOCAINE SPRAY 1 EACH MM PRN (10:11)
[2024-09-09] MEDS ORDERED: PROPOFOL 10 MG/ML 20 ML VIAL IV ONE (10:15)
--- NOTE | 2024-09-09 11:44 | P.PN ---
Progress Note - Text Progress Note Date: 09/09/24 Patient was not in room during rounds. Case was discussed with cardiology. Patient with ejection fraction of 10% and requiring cardiac catheterization. There is no plan for surgical intervention due to patient's cardiac necessities at this time. Will continue to follow and make recommendations for her cholecystitis treatment. Continue with current cardiology recommendations.
--- NOTE | 2024-09-09 12:52 | CA ---
Transthoracic Echo Report Name: Robbi Soriano Age: 54 Gender: M : 1970 Exam Date: 09/08/2024 13:16 Exam Location: [facility] Ht (in): 69 Wt (lb): 194 Ordering Physician: Anant Alvarez MD Attending/Referring Phys: Director Sports Gillian Klein RDCS Procedure CPT: Indications: afib with rvr, assess cardiac structure Cardiac Hx: Technical Quality: Fair Contrast 1: Total Dose (mL): Contrast 2: Total Dose (mL): MEASUREMENTS (Male / Female) Normal Values 2D ECHO LV Diastolic Diameter PLAX 5.8 cm 4.2 - 5.9 / 3.9 - 5.3 cm LV Systolic Diameter PLAX 5.0 cm IVS Diastolic Thickness 1.7 cm 0.6 - 1.0 / 0.6 - 0.9 cm LVPW Diastolic Thickness 1.0 cm 0.6 - 1.0 / 0.6 - 0.9 cm LV Relative Wall Thickness 0.5 RV Internal Dim ED PLAX 4.0 cm LVOT Diameter 2.4 cm Aortic Root Diameter 3.3 cm LA Systolic Diameter LX 4.8 cm 3.0 - 4.0 / 2.7 - 3.8 cm LA Volume 69.7 cm??? 18 - 58 / 22 - 52 cm??? LA Volume Index 33.4 cm???/m??? 16 - 28 cm???/m??? DOPPLER MV Area PHT 3.2 cm??? Mitral E Point Velocity 71.0 cm/s Mitral A Point Velocity 0.9 cm/s Mitral E to A Ratio 82.5 MV Deceleration Time 233.5 ms TR Peak Velocity 185.3 cm/s TR Peak Gradient 13.7 mmHg Right Atrial Pressure 15.0 mmHg Pulmonary Artery Systolic Pressu 28.7 mmHg Right Ventricular Systolic Press 28.7 mmHg PI Peak Gradient 17.3 mmHg Pulmonary Artery Diastolic Press 32.3 mmHg FINDINGS Left Ventricle Left ventricular ejection fraction is estimated at 10-15 %. Moderately increased septal wall thickness. Severely reduced global left ventricular systolic function. Mild left ventricular dilatation. Right Ventricle Mild right ventricular dilatation. Right ventricular systolic pressure within normal limits. Right Atrium Moderate right atrial dilatation. Left Atrium Moderately increased left atrial diameter. Mitral Valve Structurally normal mitral valve. No mitral stenosis. Moderate mitral regurgitation with 2 jets. Aortic Valve Trileaflet aortic valve. No aortic valve stenosis or regurgitation. Tricuspid Valve Structurally normal tricuspid valve. Mild tricuspid regurgitation. No tricuspid stenosis. Pulmonic Valve Structurally normal pulmonic valve. No pulmonic stenosis. Mild pulmonic regurgitation. Pericardium Small pericardial effusion. Aorta Normal size aortic root and proximal ascending aorta. CONCLUSIONS LVEF 10% Severely reduced global LV systolic function No evidence of any thrombus on contrast imaging Moderate biatrial dilatation Moderate mitral regurgitation, Small pericardial effusion Previewed by: Dr Paul Rico (Electronically Signed) Final Date: 09 September 2024 12:51
[2024-09-09] MEDS ORDERED: ALPRAZolam 0.25 MG TAB PO PRN (12:53)
[2024-09-09] MEDS ORDERED: NITROGLYCERIN SL TABS 0.4 MG TAB SUBLINGUAL PRN (12:53)
--- NOTE | 2024-09-09 12:59 | P.TEE ---
Date of Procedure: 09/09/24 Description of Procedure(s): Procedure performed: 1. Transesophageal Echocardiogram. 2. Synchronized Cardioversion. 3. Bubble study Indications: Persistent atrial fibrillation Consent: I have discussed the risks, benefits and alternative therapies for the above-mentioned procedure. The patient has indicated understanding and acceptance of the risks of the procedure. Signed consent was obtained and was placed in the paper chart. Moderate conscious sedation: Moderate conscious sedation was administered by anesthesia, see separate report. Procedural Steps: Timeout was performed in usual fashion. Patient's heart rate, blood pressure, oxygen saturation and ECG were monitored. After achieving appropriate moderate conscious sedation, BERNARD BERNARD probe was advanced without difficulty and without any immediate complications to the esophagus. BERNARD study was performed with color flow doppler, pulsed wave doppler and continuous wave doppler. Agitated saline bubbles were injected to assess for any intra-atrial shunt. The probe was then removed. SYNCHRONIZED CARDIOVERSION After making sure that there is no evidence of intracardiac thrombus, pacer pads were placed and secured on patients chest and back. Synchronized cardioversion was perfromed using 200 J. [1] attempt. Sinus rhythm was confirmed with a 12 lead EKG. Patient tolerated the procedure well. Patient was transferred to the post procedure area in stable and satisfactory condition. Complications: none Blood loss: none FINDINGS Left Atrium: Severe left atrial dilatation. No evidence of mass or thrombus seen Left Atrial Appendage: No evidence of thrombus or mass seen in BERTA. Very slow Doppler flow in left atrial appendage. Dilated left atrial appendage. Inter atrial septum: Intact inter-atrial septum. No evidence of atrial septal defect or patent foramen ovale on color doppler. No evidence of [id number] shunting on bubble study noticed. Left Ventricle: Severely reduced global LV systolic function Right Atrium: Normal overall RA size Right Ventricle: Normal global RV size and systolic function Aortic Valve: Structurally normal Trileaflet. No significant stenosis or regurgitation on color doppler assessment. Mitral Valve: Struturally normal. Mild functional central regurgitation due to left atrial dilatation Pulmonic Valve: Significant regurgitation Tricuspid Valve: Mild tricuspid regurgitation Ascending aorta, Aortic root and Aortic arch: Mild intimal thickening. Aortic root measured at 3.9 cm Descending aorta: Mild intimal thickening. Small right posterior pericardial effusion CONCLUSION: No evidence of thrombus in left atrium or left atrial appendage Severe left atrial dilatation Severely reduced global LV systolic function with EF of 10 to 15% Small right posterior pericardial effusion Mild functional mitral regurgitation Successful cardioversion 1 attempt 200 J. Plan Plan for cardiac authorization tomorrow to rule out any obstructive coronary artery disease IV Lasix 40 mg twice daily, Entresto half tablet 24/26 mg twice daily Continue amiodarone 400 twice daily, reduce metoprolol succinate to 25 mg daily Paul Rico MD, RPVI, FACC Thank you for allowing [facility] to participate in this patient's care. Feel free to reach out in case of any followup questions.
[2024-09-09] MEDS: SACUBITRIL/VALSARTAN 24 MG-26 MG TABLET PO SCH (13:11)
[2024-09-09] MEDS: FUROSEMIDE 10 MG/ML 4 ML VIAL IV SCH (13:11)
[2024-09-09] MEDS: HEPARIN SOD,PORK IN 0.45% NACL 25,000 UNIT in 0.45% NACL 1 250ML.BAG IV SCH (13:12)
[2024-09-09 13:18] LABS: Basophils # (A) 0.06 10*3/uL (0.00-0.10); Basophils % (A) 0.7 %; Eosinophils # (A) 0.02 10*3/uL (0.04-0.35); Eosinophils % (A) 0.2 %; HCT 48.0 % (39.6-50.0); HGB 16.7 g/dL (13.0-17.0); Lymphocytes # (A) 1.25 10*3/uL (0.90-5.00); Lymphocytes % (A) 13.8 %; MCH 32.3 pg (27.0-32.0); MCHC 34.8 g/dL (32.0-37.0); MCV 92.8 fL (80.0-97.0); Monocytes # (A) 0.80 10*3/uL (0.20-1.00); Monocytes % (A) 8.8 %; Neutrophils # (A) 6.92 10*3/uL (1.80-7.70); Neutrophils % (A) 76.2 %; Platelet Count 208 10*3/uL (140-440); RBC 5.17 10*6/uL (4.40-5.60); RDW 13.7 % (11.5-14.5); WBC 9.08 10*3/uL (4.50-10.00)
[2024-09-09 13:29] LABS: INR 1.3 (<1.2); Partial Thromboplastin Time 51.9 sec (22.0-30.0); Prothrombin Time 13.4 sec (10.0-12.5)
[2024-09-09] MEDS: APIXABAN 5 MG TAB PO SCH (16:46)
[2024-09-09] MEDS: ASPIRIN 325 MG TAB PO STA (18:17)
[2024-09-09] MEDS: ATORVASTATIN 40 MG TAB PO SCH (20:16)
[2024-09-09] MEDS: HEPARIN SODIUM 1,000 UN/ML (10ML VL) IV PRN (20:18)
[2024-09-10 03:29] LABS: Basophils # (A) 0.06 10*3/uL (0.00-0.10); Basophils % (A) 0.8 %; Eosinophils # (A) 0.09 10*3/uL (0.04-0.35); Eosinophils % (A) 1.2 %; HCT 50.6 % (39.6-50.0); HGB 17.4 g/dL (13.0-17.0); Lymphocytes # (A) 1.26 10*3/uL (0.90-5.00); Lymphocytes % (A) 17.1 %; MCH 31.6 pg (27.0-32.0); MCHC 34.4 g/dL (32.0-37.0); MCV 92.0 fL (80.0-97.0); Monocytes # (A) 0.84 10*3/uL (0.20-1.00); Monocytes % (A) 11.4 %; Neutrophils # (A) 5.10 10*3/uL (1.80-7.70); Neutrophils % (A) 69.0 %; Platelet Count 191 10*3/uL (140-440); RBC 5.50 10*6/uL (4.40-5.60); RDW 13.7 % (11.5-14.5); WBC 7.39 10*3/uL (4.50-10.00)
[2024-09-10 03:54] LABS: INR 1.3 (<1.2); Prothrombin Time 14.2 sec (10.0-12.5)
[2024-09-10] MEDS: SODIUM CHLORIDE 0.9% 1,000 ML IV SCH (04:31)
[2024-09-10] MEDS: ATORVASTATIN 80 MG TAB PO ONE (05:00)
[2024-09-10] MEDS: ASPIRIN 325 MG TAB PO ONE (05:00)
[2024-09-10 05:52] LABS: Glucose,Whole Blood 109 mg/dL (70-110)
[2024-09-10] MEDS: MIDAZOLAM 2 MG/2 ML VIAL IVP ONE (07:57)
[2024-09-10] MEDS: fentaNYL (PF) 50 MCG/ML 2 ML AMP IVP ONE (07:57)
[2024-09-10] MEDS: LIDOCAINE 1% INJ 10MG/ML (20 ML MDV) SQ ONE (07:59)
[2024-09-10] MEDS: VERAPAMIL SYRINGE (5 MG/10 ML) INTRAARTER ONE (08:00)
[2024-09-10] MEDS: HEPARIN SODIUM 1,000 UN/ML (10ML VL) IVP ONE (08:05)
[2024-09-10] MEDS: IOPAMIDOL-370 100ML BTL INJ ONE (08:15)
[2024-09-10] MEDS: IV FLUID CONTINUATION 1,000 ML IV ONE (08:16)
[2024-09-10] MEDS: HEPARIN SODIUM,PORCINE (1 ML) 2,500 UNIT in SODIUM CHLORIDE 0.9% 250 ML IRRIGATION PRN (08:16)
[2024-09-10] MEDS: HEPARIN SODIUM,PORCINE 10,000 UNIT in SODIUM CHLORIDE 0.9% 1,000 ML IRRIGATION PRN (08:16)
--- NOTE | 2024-09-10 08:36 | P.CARDCATH ---
Date of Procedure: 09/10/24 Description of Procedure: DIAGNOSTIC CORONARY ANGIOGRAPHY and LEFT HEART CATH REPORT PROCEDURES PERFORMED: Left heart catheterization Selective coronary angiography Moderate conscious sedation 18 mins Right radial access INDICATION: Cardiomyopathy with a EF of 10 to 15% CONSENT: I have explained the procedural steps of above-mentioned procedures in layman's terms to the patient. I discussed the risks (including but not limited to stroke, emergent vascular or cardiac surgery or ), benefits and al ternative therapies for the above-mentioned procedure. I discussed the risks of sedation/analgesia and blood product administration (if indicated). The patient has indicated understanding and acceptance of these risks. Conscious Sedation: Patient's ECG, heart rate, blood pressure, pulse oximetry were monitored throughout the duration of procedure under my direct supervision. 2 mg Versed and 50 mcg Fentanyl were used for induction of moderate conscious sedation. Total duration of moderate concious sedation 18 minutes. PROCEDURAL DETAILS: Patient was prepped and draped in sterile fashion. 1% lidocaine was infiltrated over the right radial artery. Right radial access was obtained via modified seldinger technique. Medications: 5mg of verapamil was administed in the radial sheet. 4500 Units of Heparin was administed once the catheter reached the aortic root Wires and Catheter used: J wire was advanced under fluroscopy to get to aortic root. 5 vincentian JR 4 diagnostic catheter was utilized obtain left ventricular pressure and pressure gradint across aortic valve. 5 vincentian JR 4 diagnostic catheter was used to selectively engage the right coronary ostium. 5 vincentian JL 3.5 diagnostic catheter was utilized to selectively engage the left coronary ostium. Angiographic images were reviewed in detail. Catheter and wire were removed. Radial sheet was flushed. The right radial sheath was removed and a TR band was placed. Patent hemostasis was achieved. The patient tolerated the procedure well. Patient was transported back to the post catheterization holding area in stable condition. TECHNICAL DETAILS Total radiation: 170 mGy Total fluro time: 3.7 minutes Total contrast used: Isovue [60 ml] Complications: [none] Estimated Blood loss: less than 15 ml HEMODYNAMICS: Aortic Pressure: 110/70 mmHg. LV pressure: 112/0 mmHg. LVEDP 4 mmHg. There was no significant gradient across the aortic valve. SELECTIVE CORONARY ARTERIOGRAPHY: LEFT MAIN: The left main is short and large caliber vessel it trifurcates into LAD, ramus intermedius, LCx. Left main appears scintigraphically patent. LEFT ANTERIOR DESCENDING CORONARY ARTERY: LAD is a large caliber vessel which wraps around to the apex. Proximal middle and distal LAD appears angiographically patent. Mid LAD gives rise to a medium size diagonal branch with abysmally graphically patent. LEFT CIRCUMFLEX CORONARY ARTERY: LCx is nondominant. It appears angiographically patent. RAMUS: Moderate caliber vessel appears angiographically patent. RIGHT CORONARY ARTERY: Dominant vessel. The right coronary artery is a large caliber vessel. RCA appears graphically patent. Distal LAD gives rise to PDA PL branch which appears angiographically patent. IMPRESSION: Angiographically patent coronary arteries Normal LVEDP Dilated nonischemic cardiomyopathy EF of 10 to 15% PLAN: Continue amiodarone. Reduce it to 200 mg twice daily Discontinue aspirin, heparin drip Start Eliquis 5 twice daily Discontinue IV Lasix, start Farxiga 10 mg daily, continue Entresto half tablet 24/26 mg twice daily, torsemide 10 mg daily Continue metoprolol succinate 25 mg daily Patient will need a LifeVest. Verquvo 2.5 mg at time of discharge. Performing Physician Paul Rico MD, FACC, RPVI Thank you for allowing [facility] to participate in this patient's care. Feel free to reach out in case of any followup questions.
[2024-09-10] MEDS ORDERED: RX INFO: IV CONTRAST WAS GIVEN 1 EACH MISC MISCELLANE PRN (08:39)
[2024-09-10] MEDS: METOPROLOL SUCCINATE (ER) 25 MG TAB.ER.24H PO SCH (09:03)
[2024-09-10] MEDS: AMIODARONE 200 MG TAB PO SCH (09:03)
--- NOTE | 2024-09-10 12:00 | P.PN ---
Subjective Progress Note Date: 09/10/24 Patient seen and examined at bedside. No acute events. Did undergo cardiac catheterization. States abdominal pain is absent. Objective - Vital Signs Vital signs: Vital Signs Temp 97.3 F L 09/10/24 08:30 Pulse 77 09/10/24 10:24 Resp 16 09/10/24 08:30 BP 105/69 09/10/24 10:24 Pulse Ox 94 L 09/10/24 10:24 FiO2 Intake & Output 09/09/24 09/10/24 09/10/24 18:59 06:59 18:59 Intake Total 546 93.91 300 Balance 546 93.91 300 Weight 81 kg Intake: IV 100 20 300 Invasive Line 1 10 Invasive Line 2 10 Intake, IV Titration 246 73.91 Amount Heparin Sod,Pork in 0.45% 96 73.91 NaCl 25,000 unit In 0.45 % NaCl 1 250ml.bag @ 11. 338 UNITS/KG/HR 10 mls/hr IV .Q24H [facility] Rx#: [id number] cefTRIAXone 2 gm In 50 Sodium Chloride 0.9% 50 ml @ 100 mls/hr IVPB Q24H [facility] Rx#:[id number] metroNIDAZOLE-NS PMX 500 100 mg In Saline 1 100ml.bag @ 100 mls/hr IVPB Q8HR [facility] Rx#:[id number] Oral 200 Other: Voiding Method Toilet Toilet Toilet # Voids 5 - Constitutional General appearance: Present: cooperative - Gastrointestinal Gastrointestinal Comment(s): Soft, nontender, nondistended - Psychiatric Psychiatric: Present: A&O x's 3 - Labs CBC & Chem 7: 09/10/24 02:48 09/09/24 05:15 Labs: Abnormal Lab Results - Last 24 Hours (Table) 09/08/24 09/09/24 09/09/24 Range/Units 10:43 13:00 13:00 Hgb (13.0-17.0) g/dL Hct (39.6-50.0) % MCH 32.3 H (27.0-32.0) pg Eosinophils # 0.02 L (0.04-0.35) 10*3/uL PT 13.4 H (10.0-12.5) sec INR 1.3 H (<1.2) APTT 51.9 H (22.0-30.0) sec Hemoglobin A1c 6.2 H (<=6.0) % 09/09/24 09/10/24 09/10/24 Range/Units 18:46 02:48 02:48 Hgb 17.4 H (13.0-17.0) g/dL Hct 50.6 H (39.6-50.0) % MCH (27.0-32.0) pg Eosinophils # (0.04-0.35) 10*3/uL PT (10.0-12.5) sec INR (<1.2) APTT 36.5 H 68.6 H (22.0-30.0) sec Hemoglobin A1c (<=6.0) % 09/10/24 Range/Units 02:48 Hgb (13.0-17.0) g/dL Hct (39.6-50.0) % MCH (27.0-32.0) pg Eosinophils # (0.04-0.35) 10*3/uL PT 14.2 H (10.0-12.5) sec INR 1.3 H (<1.2) APTT (22.0-30.0) sec Hemoglobin A1c (<=6.0) % Assessment and Plan Plan: 54-year-old male with concern for cholecystitis with new onset atrial fibrillation and cardiomyopathy with ejection fraction at 10 to 15%. Case was discussed with cardiology with no plan for surgical intervention at this time secondary to patient's cardiac status. Would recommend continuing antibiotics. Should he have any recurrent pain episodes, we can consider cholecystostomy tube as a measure until cardiac status is improved. Currently, patient is asymptomatic. No plan an acute surgical intervention.
[2024-09-10] MEDS: TORSEMIDE 20 MG TAB PO SCH (15:46)
[2024-09-10 18:04] LABS: Glucose,Whole Blood 183 mg/dL (70-110)
--- NOTE | 2024-09-10 23:44 | P.PN ---
Subjective This is a pleasant 54 years old male with no significant past medical history. He has previous history of A-fib and squamous cell cancer of the throat in 2008. Presents because of he describes as stomach pain, / in the right upper quadrant nonradiating like someone punching him in the gut as he describes. He has not been eating for the last 3 days but with no vomiting. He reports diarrhea once a day Complains from exertional dyspnea but no chest pain no coughing No headache dizziness weakness numbness no dysuria urgency He drinks alcohol occasionally but he does not smoke or uses substances. He was transferred from [facility] Currently getting IV antibiotics and fluids and heparin 09/08 Patient with GI symptoms: Nausea Unable to eat Surgery team plan for cardiology clearance. Patient present with A-fib, Cardizem switched to oral medication with Cardizem and metoprolol Still on IV heparin pending echocardiogram 09/09 Patient sitting at bedside with no chest pain or dyspnea No abdominal pain or significant tenderness He is getting heparin drip and normal saline 75 mL/h. Also is on ceftriaxone and Flagyl. Pending echocardiogram to decide about heparin drip preop evaluation Discussed plan with the patient and he is agreeable 09/10 Patient had coronary angiogram of earlier this morning showing patent coronary arteries but dilated nonischemic severe cardiomyopathy with ejection fraction 10 to 15% Patient was placed on IV Lasix 40 mg twice daily and Entresto. Continues on amiodarone and metoprolol heparin drop was stopped and changed to eliquis, dc aspirin per features editor Because of her severe cardiomyopathy surgery was held and patient currently continued to be treated empirically with antibiotic. Currently on ceftriaxone and Flagyl Objective - Vital Signs Vital signs: Vital Signs Temp 97.3 F L 09/10/24 04:00 Pulse 94 09/10/24 04:00 Resp 16 09/10/24 04:00 BP 101/69 09/10/24 04:00 Pulse Ox 95 09/10/24 04:00 FiO2 Intake & Output 09/09/24 09/10/24 09/10/24 18:59 06:59 18:59 Intake Total 546 93.91 300 Balance 546 93.91 300 Weight 81 kg Intake: IV 100 20 300 Invasive Line 1 10 Invasive Line 2 10 Intake, IV Titration 246 73.91 Amount Heparin Sod,Pork in 0.45% 96 73.91 NaCl 25,000 unit In 0.45 % NaCl 1 250ml.bag @ 11. 338 UNITS/KG/HR 10 mls/hr IV .Q24H [facility] Rx#: [id number] cefTRIAXone 2 gm In 50 Sodium Chloride 0.9% 50 ml @ 100 mls/hr IVPB Q24H [facility] Rx#:[id number] metroNIDAZOLE-NS PMX 500 100 mg In Saline 1 100ml.bag @ 100 mls/hr IVPB Q8HR [facility] Rx#:[id number] Oral 200 Other: Voiding Method Toilet Toilet # Voids 5 - Exam GENERAL: The patient is alert and oriented x3, not in any acute distress. Well developed, well nourished. HEENT: Pupils are round and equally reacting to light. EOMI. No scleral icterus. No conjunctival pallor. Normocephalic, atraumatic. No pharyngeal erythema. No thyromegaly. CARDIOVASCULAR: S1 and S2 present. No murmurs, rubs, or gallops. PULMONARY: Chest is clear to auscultation, no wheezing , no crackles. ABDOMEN: Soft, nontender, nondistended, normoactive bowel sounds. No palpable organomegaly. MUSCULOSKELETAL: No joint swelling or deformity. EXTREMITIES: No cyanosis, clubbing, or pedal edema. NEUROLOGICAL: Gross neurological examination did not reveal any focal deficits. SKIN: No rashes. no petechiae. - Labs CBC & Chem 7: 09/10/24 02:48 09/09/24 05:15 Labs: Abnormal Lab Results - Last 24 Hours (Table) 09/08/24 09/09/24 09/09/24 Range/Units 10:43 13:00 13:00 Hgb (13.0-17.0) g/dL Hct (39.6-50.0) % MCH 32.3 H (27.0-32.0) pg Eosinophils # 0.02 L (0.04-0.35) 10*3/uL PT 13.4 H (10.0-12.5) sec INR 1.3 H (<1.2) APTT 51.9 H (22.0-30.0) sec Hemoglobin A1c 6.2 H (<=6.0) % 09/09/24 09/10/24 09/10/24 Range/Units 18:46 02:48 02:48 Hgb 17.4 H (13.0-17.0) g/dL Hct 50.6 H (39.6-50.0) % MCH (27.0-32.0) pg Eosinophils # (0.04-0.35) 10*3/uL PT (10.0-12.5) sec INR (<1.2) APTT 36.5 H 68.6 H (22.0-30.0) sec Hemoglobin A1c (<=6.0) % 09/10/24 Range/Units 02:48 Hgb (13.0-17.0) g/dL Hct (39.6-50.0) % MCH (27.0-32.0) pg Eosinophils # (0.04-0.35) 10*3/uL PT 14.2 H (10.0-12.5) sec INR 1.3 H (<1.2) APTT (22.0-30.0) sec Hemoglobin A1c (<=6.0) % Assessment and Plan Assessment: Acute cholecystitis dilated nonischemic severe cardiomyopathy with ejection fraction 10 to 15% Atrial fibrillation History of squamous cancer of the throat in 2008, currently on remission Plan: S/p cardiac cath showing patent coronary arteries. Heparin drip was held. Patient was started on Lasix and Entresto by features editor Continue with metoprolol and amiodarone Cardiology team consult following closely Continue with antibiotic ceftriaxone and Flagyl Surgery team consult, with no plan for surgical intervention given severe cardiomyopathy Bowel rest Pain management Labs and medication were reviewed.. Continue same treatment. Continue with sy mptomatic treatment. Resume home medication. Monitor labs and vitals. DVT and GI prophylaxis. Further recommendations as per clinical course of the patient DVT prophylaxis: heparin GI Prophylaxis: Pepcid PT/OT: Pending Prognosis is guarded
[2024-09-11 01:46] LABS: Basophils # (A) 0.06 10*3/uL (0.00-0.10); Basophils % (A) 0.8 %; Eosinophils # (A) 0.10 10*3/uL (0.04-0.35); Eosinophils % (A) 1.4 %; HCT 52.9 % (39.6-50.0); HGB 18.1 g/dL (13.0-17.0); Lymphocytes # (A) 1.12 10*3/uL (0.90-5.00); Lymphocytes % (A) 15.6 %; MCH 31.4 pg (27.0-32.0); MCHC 34.2 g/dL (32.0-37.0); MCV 91.8 fL (80.0-97.0); Monocytes # (A) 0.68 10*3/uL (0.20-1.00); Monocytes % (A) 9.5 %; Neutrophils # (A) 5.19 10*3/uL (1.80-7.70); Neutrophils % (A) 72.3 %; Platelet Count 172 10*3/uL (140-440); RBC 5.76 10*6/uL (4.40-5.60); RDW 13.7 % (11.5-14.5); WBC 7.18 10*3/uL (4.50-10.00)
[2024-09-11 02:01] LABS: ALT 62 U/L (4-49); AST 61 U/L (17-59); African American GFR (CKD) >90 (>60 ml/min/1.73 sqM); Albumin 3.2 g/dL (3.5-5.0); Alkaline Phosphatase 47 U/L (38-126); Anion Gap 10 mmol/L; Blood Urea Nitrogen 13 mg/dL (9-20); Calcium 8.5 mg/dL (8.4-10.2); Carbon Dioxide 24 mmol/L (22-30); Chloride 104 mmol/L (98-107); Glucose 105 mg/dL (74-99); Non-African American GFR(CKD) >90 (>60 ml/min/1.73 sqM); Potassium 3.1 mmol/L (3.5-5.1); Sodium 138 mmol/L (137-145); Total Protein 5.4 g/dL (6.3-8.2)
--- NOTE | 2024-09-11 09:17 | P.PN ---
Progress Note - Text Progress Note Date: 09/11/24 No acute events overnight VSS General-NAD Abdomen-soft, NTND 54-year-old male with concern for cholecystitis with new onset atrial fibrillation and cardiomyopathy with ejection fraction at 10 to 15%. Case was discussed with cardiology with no plan for surgical intervention at this time secondary to patient's cardiac status. Surgery would recommend continuing antibiotics. Should he have any recurrent pain episodes, we can consider cholecystostomy tube as a measure until cardiac status is improved. Currently, patient is asymptomatic. No plan an acute surgical intervention. Maged Lombardo DO [facility] [phone]
--- NOTE | 2024-09-11 12:42 | P.PN ---
Subjective Progress Note Date: 09/11/24 HISTORY OF PRESENTING ILLNESS: 54-year-old not known to cardiology service. He went to [facility] because of increased worsening abdominal discomfort. At the initial evaluation he was noticed to have concerns of acute cholecystitis along with atrial fibrillation. For this he was sent to [facility]. At the time of evaluation he is in rate controlled atrial fibrillation. He is on Cardizem drip. Patient reports that he has not been aware of atrial fibrillation in the past however over the last 2 to 3 months he has reported increased worsening fatigue and on and off palpitations. He reports that his palpitation has been going on for a year on and off but has got more frequent and intense lately. ................................................................................ .............................................................. Pertient Labs: Troponins were negative x 3, NT-proBNP 3630, TSH was 2.05, normal T4 and T3 magnesium 1.8 EKG: Atrial fibrillation .......... ................................................................................ .................................................... Echo shows dilated LV cavity with a EF of 10 to 15% mild MR mild TR, dilated bilateral atrium Cardiac catheterization showed patent coronary artery disease with normal LVEDP BERNARD showed severe left atrial dilatation, no thrombus, EF 10 to 15%, small pericardial effusion, functional mitral regurgitation mild Successful 1 attempt cardioversion 200 J .................. ................................................................................ ............................................ Progress note 09/11/2024 BP 122/89, heart rate is 85 Hb 18, BUN 13, creatinine 0.9 ................................................................................ .............................................................. PHYSICAL EXAMINATION: Neck: Brisk carotid upstroke, no jugular venous distention. Lungs: Clear to auscultation. Heart: Irregular rate and rhythm, S1-S2, , no murmur or rub. Abdomen: Soft mild right upper quadrant tenderness, positive bowel sounds. Extremities: No edema, intact distal pulses. Neuro: Alert, oritented, no focal deficits. Detailed neuro exam was not performed. ......................................................................... ..................................................................... ASSESSMENT: # Dilated cardiomyopathy, currently euvolemic. EF 10 to 15%, combination of tachycardia cardiomyopathy and alcohol use # Atrial fibrillation with RVR on admission. Currently rate controlled. First diagnosed 08/2024. 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 If cannot afford then warfarin from 09/17/2024 reduced to 200 mg daily Metoprolol XL 25 mg daily, torsemide 10 mg daily, Entresto half tablet 24/26 mg twice daily Complete alcohol abstinence Recommend outpatient follow-up with cardiology Amiodarone 200 twice daily for 1 week. Consider outpatient follow-up for polycythemia with a trim and burr operator to understand if it is primary or secondary. At this time patient stable from cardiovascular standpoint. Cardiology team will sign off. Objective - Vital Signs Vital signs: Vital Signs Temp 97.8 F 09/11/24 09:35 Pulse 85 09/11/24 09:35 Resp 16 09/11/24 09:35 BP 122/89 09/11/24 09:35 Pulse Ox 98 09/11/24 09:35 FiO2 Intake & Output 09/10/24 09/11/24 09/11/24 18:59 06:59 18:59 Intake Total 1004 240 Output Total 200 Balance 1004 -200 240 Weight 81.1 kg Intake: IV 300 Intake, IV Titration 350 Amount Sodium Chloride 0.9% 1, 200 000 ml @ 75 mls/hr IV . [id number] [facility] Rx#:[id number] cefTRIAXone 2 gm In 50 Sodium Chloride 0.9% 50 ml @ 100 mls/hr IVPB Q24H [facility] Rx#:[id number] metroNIDAZOLE-NS PMX 500 100 mg In Saline 1 100ml.bag @ 100 mls/hr IVPB Q8HR [facility] Rx#:[id number] Oral 354 240 Output: Urine 200 Other: Voiding Method Toilet Toilet Toilet # Voids 1 - Labs CBC & Chem 7: 09/11/24 01:22 09/11/24 01:18 Labs: Abnormal Lab Results - Last 24 Hours (Table) 09/10/24 09/11/24 09/11/24 Range/Units 18:03 01:18 01:22 RBC 5.76 H (4.40-5.60) 10*6/uL Hgb 18.1 H (13.0-17.0) g/dL Hct 52.9 H (39.6-50.0) % Potassium 3.1 L (3.5-5.1) mmol/L Glucose 105 H (74-99) mg/dL POC Glucose (mg/dL) 183 H (70-110) mg/dL AST 61 H (17-59) U/L ALT 62 H (4-49) U/L Total Protein 5.4 L (6.3-8.2) g/dL Albumin 3.2 L (3.5-5.0) g/dL
--- NOTE | 2024-09-11 16:34 | P.PN ---
Subjective This is a pleasant 54 years old male with no significant past medical history. He has previous history of A-fib and squamous cell cancer of the throat in 2008. Presents because of he describes as stomach pain, 6/10 in the right upper quadrant nonradiating like someone punching him in the gut as he describes. He has not been eating for the last 3 days but with no vomiting. He reports diarrhea once a day Complains from exertional dyspnea but no chest pain no coughing No headache dizziness weakness numbness no dysuria urgency He drinks alcohol occasionally but he does not smoke or uses substances. He was transferred from [facility] Currently getting IV antibiotics and fluids and heparin 09/08 Patient with GI symptoms: Nausea Unable to eat Surgery team plan for cardiology clearance. Patient present with A-fib, Cardizem switched to oral medication with Cardizem and metoprolol Still on IV heparin pending echocardiogram 09/09 Patient sitting at bedside with no chest pain or dyspnea No abdominal pain or significant tenderness He is getting heparin drip and normal saline 75 mL/h. Also is on ceftriaxone and Flagyl. Pending echocardiogram to decide about heparin drip preop evaluation Discussed plan with the patient and he is agreeable 09/10 Patient had coronary angiogram of earlier this morning showing patent coronary arteries but dilated nonischemic severe cardiomyopathy with ejection fraction 10 to 15% Patient was placed on IV Lasix 40 mg twice daily and Entresto. Continues on amiodarone and metoprolol heparin drop was stopped and changed to eliquis, dc aspirin per rn supplemental Because of her severe cardiomyopathy surgery was held and patient currently continued to be treated empirically with antibiotic. Currently on ceftriaxone and Flagyl 09/11 Patient is awake alert Sitting at the bedside no abdominal pain or tenderness. Patient was found to have severe dilated cardiomyopathy with impaired LV function down to 10 to 15%. No significant chest pain or dyspnea. However patient started on cardiac medication including metoprolol and Entresto as well as Lipitor and Eliquis. Patient cannot afford Eliquis because he does not have insurance, warfarin may be considered as inpatient or an outpatient if patient provided with 1 month supply of free coupon for Eliquis. Patient prefers the latter choice with 1 month free supply. Patient also started on torsemide 10 mg daily. Amiodarone lowered to 200 mg. Patient also with polycythemia I have lengthy discussion with the patient in the presence of his significant other and the bedside nurse. Patient was requesting to be discharged home today stating that he does not have medical insurance and he cannot afford hospital stay. I informed the patient medically he is not cleared for discharge. Also life vest is recommended for him as he is high risk for arrhythmia and sudden . Besides he still needs IV antibiotics and monitoring. He verbalized understanding he was hesitant in the beginning but later on decided to agree to stay. Patient has capacity to make medical decision based upon my evaluation. Active Medications Generic Name Dose Route Start Last Admin Trade Name Freq PRN Reason Stop Dose Admin Alprazolam 0.25 mg 09/09/24 12:53 Alprazolam 0.25 Mg Tab PO Q6HR PRN Mild Anxiety Amiodarone HCl 200 mg 09/10/24 09:00 09/11/24 09:40 Amiodarone 200 Mg Tab PO 200 mg BID [facility] Administration Atorvastatin Calcium 40 mg 09/09/24 21:00 09/10/24 20:55 Atorvastatin 40 Mg Tab PO 40 mg HS [facility] Administration Hydromorphone HCl 0.5 mg 09/07/24 13:33 09/07/24 13:47 Hydromorphone 0.5 Mg/0.5 Ml Syringe IVP 0.5 mg Q3HR PRN Administration Moderate Pain (Scale 4 to 6) Hydromorphone HCl 1 mg 09/07/24 13:33 Hydromorphone 1 Mg/Ml 1 Ml Syringe IVP Q3HR PRN Severe Pain (Scale 7 to 10) Metronidazole 500 mg/ IV 100 mls @ 100 mls/hr 09/07/24 16:00 09/11/24 09:39 Solution IVPB 100 mls/hr Q8HR [facility] Administration Protocol Ceftriaxone Sodium 2 gm/ 50 mls @ 100 mls/hr 09/07/24 14:00 09/11/24 15:56 Sodium Chloride IVPB 100 mls/hr Q24H [facility] Administration Protocol Metoprolol Succinate 25 mg 09/10/24 09:00 09/11/24 09:40 Metoprolol Succinate (Er) 25 Mg Tab.Er.24h PO 25 mg DAILY [facility] Administration Miscellaneous Information 1 each 09/10/24 08:39 Rx Info: Iv Contrast Was Given 1 Each Misc MISCELLANE 09/12/24 08:39 DAILY PRN Per Protocol Naloxone HCl 0.2 mg 09/07/24 13:33 Naloxone 0.4 Mg/Ml 1 Ml Vial IV Q2M PRN Opioid Reversal Nitroglycerin 0.4 mg 09/09/24 12:53 Nitroglycerin Sl Tabs 0.4 Mg Tab SUBLINGUAL Q5M PRN Chest Pain Ondansetron HCl 4 mg 09/07/24 13:42 Ondansetron 4 Mg/2 Ml Vial IVP Q6H PRN Nausea Pantoprazole Sodium 40 mg 09/07/24 13:45 09/11/24 09:40 Pantoprazole 40 Mg/10 Ml Vial IV 40 mg DAILY [facility] Administration Sacubitril/Valsartan 0.5 each 09/09/24 13:00 09/11/24 09:40 Sacubitril/Valsartan 24 Mg-26 Mg Tablet PO 0.5 each BID [facility] Administration Torsemide 10 mg 09/10/24 16:00 09/11/24 15:56 Torsemide 20 Mg Tab PO 10 mg DAILY@1600 [facility] Administration Objective - Vital Signs Vital signs: Vital Signs Temp 97.8 F 09/11/24 09:35 Pulse 85 09/11/24 09:35 Resp 16 09/11/24 09:35 BP 122/89 09/11/24 09:35 Pulse Ox 98 09/11/24 09:35 FiO2 Intake & Output 09/10/24 09/11/24 09/11/24 18:59 06:59 18:59 Intake Total 1004 240 Output Total 200 Balance 1004 -200 240 Weight 81.1 kg Intake: IV 300 Intake, IV Titration 350 Amount Sodium Chloride 0.9% 1, 200 000 ml @ 75 mls/hr IV . [id number] [facility] Rx#:[id number] cefTRIAXone 2 gm In 50 Sodium Chloride 0.9% 50 ml @ 100 mls/hr IVPB Q24H [facility] Rx#:[id number] metroNIDAZOLE-NS PMX 500 100 mg In Saline 1 100ml.bag @ 100 mls/hr IVPB Q8HR [facility] Rx#:[id number] Oral 354 240 Output: Urine 200 Other: Voiding Method Toilet Toilet Toilet # Voids 1 - Exam GENERAL: The patient is alert and oriented x3, not in any acute distress. Well developed, well nourished. HEENT: Pupils are round and equally reacting to light. EOMI. No scleral icterus. No conjunctival pallor. Normocephalic, atraumatic. No pharyngeal erythema. No thyromegaly. CARDIOVASCULAR: S1 and S2 present. No murmurs, rubs, or gallops. PULMONARY: Chest is clear to auscultation, no wheezing , no crackles. ABDOMEN: Soft, nontender, nondistended, normoactive bowel sounds. No palpable organomegaly. MUSCULOSKELETAL: No joint swelling or deformity. EXTREMITIES: No cyanosis, clubbing, or pedal edema. NEUROLOGICAL: Gross neurological examination did not reveal any focal deficits. SKIN: No rashes. no petechiae. - Labs CBC & Chem 7: 09/11/24 01:22 09/11/24 01:18 Labs: Abnormal Lab Results - Last 24 Hours (Table) 09/10/24 09/11/24 09/11/24 Range/Units 18:03 01:18 01:22 RBC 5.76 H (4.40-5.60) 10*6/uL Hgb 18.1 H (13.0-17.0) g/dL Hct 52.9 H (39.6-50.0) % Potassium 3.1 L (3.5-5.1) mmol/L Glucose 105 H (74-99) mg/dL POC Glucose (mg/dL) 183 H (70-110) mg/dL AST 61 H (17-59) U/L ALT 62 H (4-49) U/L Total Protein 5.4 L (6.3-8.2) g/dL Albumin 3.2 L (3.5-5.0) g/dL Assessment and Plan Assessment: Acute cholecystitis dilated nonischemic severe cardiomyopathy with ejection fraction 10 to 15% Atrial fibrillation History of squamous cancer of the throat in 2008, currently on remission Plan: S/p cardiac cath showing patent coronary arteries. Heparin drip was held. Patient was started on torsemide and Entresto by rn supplemental Continue with metoprolol and amiodarone Cardiology team consult following closely Continue with antibiotic ceftriaxone and Flagyl Surgery team consult, with no plan for surgical intervention given severe cardiomyopathy Diet as tolerated Pain management Will consult socially responsible investment adviser for lack of insurance Patient advised extensively against leaving [place], he verbalized understanding and agrees to stay for now Labs and medication were reviewed.. Continue same treatment. Continue with symptomatic treatment. Resume home medication. Monitor labs and vitals. DVT and GI prophylaxis. Further recommendations as per clinical course of the patient DVT prophylaxis: heparin GI Prophylaxis: Pepcid PT/OT: Pending Prognosis is guarded
[2024-09-12 07:12] LABS: Basophils # (A) 0.06 10*3/uL (0.00-0.10); Basophils % (A) 0.8 %; Eosinophils # (A) 0.14 10*3/uL (0.04-0.35); Eosinophils % (A) 1.8 %; HCT 54.1 % (39.6-50.0); HGB 18.5 g/dL (13.0-17.0); Lymphocytes # (A) 1.61 10*3/uL (0.90-5.00); Lymphocytes % (A) 20.3 %; MCH 31.2 pg (27.0-32.0); MCHC 34.2 g/dL (32.0-37.0); MCV 91.2 fL (80.0-97.0); Monocytes # (A) 0.84 10*3/uL (0.20-1.00); Monocytes % (A) 10.6 %; Neutrophils # (A) 5.25 10*3/uL (1.80-7.70); Neutrophils % (A) 66.2 %; Platelet Count 214 10*3/uL (140-440); RBC 5.93 10*6/uL (4.40-5.60); RDW 13.5 % (11.5-14.5); WBC 7.92 10*3/uL (4.50-10.00)
[2024-09-12 07:41] LABS: ALT 76 U/L (4-49); AST 86 U/L (17-59); African American GFR (CKD) >90 (>60 ml/min/1.73 sqM); Albumin 3.5 g/dL (3.5-5.0); Alkaline Phosphatase 50 U/L (38-126); Anion Gap 9 mmol/L; Bilirubin, Delta 0.3 mg/dL (0.0-0.2); Bilirubin,Unconjugated 0.6 mg/dL (0.0-1.1); Blood Urea Nitrogen 15 mg/dL (9-20); Calcium 9.0 mg/dL (8.4-10.2); Carbon Dioxide 24 mmol/L (22-30); Chloride 104 mmol/L (98-107); Glucose 105 mg/dL (74-99); Non-African American GFR(CKD) >90 (>60 ml/min/1.73 sqM); Potassium 3.7 mmol/L (3.5-5.1); Sodium 137 mmol/L (137-145); Total Protein 5.6 g/dL (6.3-8.2)
--- NOTE | 2024-09-12 09:13 | P.PN ---
Subjective Progress Note Date: 09/12/24 Patient seen and examined at bedside. No acute events. States abdominal pain has resolved over the past few days. Objective - Vital Signs Vital signs: Vital Signs Temp 98.1 F 09/12/24 04:00 Pulse 62 09/12/24 04:00 Resp 16 09/12/24 04:00 BP 120/62 09/12/24 04:00 Pulse Ox 96 09/12/24 04:00 FiO2 Intake & Output 09/11/24 09/12/24 09/12/24 18:59 06:59 18:59 Intake Total 866 240 Output Total 965 Balance -99 240 Weight 81.6 kg Intake: Intake, IV Titration 150 Amount cefTRIAXone 2 gm In 50 Sodium Chloride 0.9% 50 ml @ 100 mls/hr IVPB Q24H [facility] Rx#:[id number] metroNIDAZOLE-NS PMX 500 100 mg In Saline 1 100ml.bag @ 100 mls/hr IVPB Q8HR [facility] Rx#:[id number] Oral 716 240 Output: Urine 965 Other: Voiding Method Toilet # Voids 3 - Constitutional General appearance: Present: cooperative, no acute distress - Gastrointestinal Gastrointestinal Comment(s): Soft, nontender, nondistended, no rebound or guarding - Labs CBC & Chem 7: 09/12/24 06:14 09/12/24 06:14 Labs: Abnormal Lab Results - Last 24 Hours (Table) 09/12/24 09/12/24 Range/Units 06:14 06:14 RBC 5.93 H (4.40-5.60) 10*6/uL Hgb 18.5 H (13.0-17.0) g/dL Hct 54.1 H (39.6-50.0) % Glucose 105 H (74-99) mg/dL Delta Bilirubin 0.3 H (0.0-0.2) mg/dL AST 86 H (17-59) U/L ALT 76 H (4-49) U/L Total Protein 5.6 L (6.3-8.2) g/dL Assessment and Plan Plan: 54-year-old male with concern for cholecystitis with new onset atrial fibrillation and cardiomyopathy with ejection fraction at 10 to 15%. Case was discussed with cardiology with no plan for surgical intervention at this time secondary to patient's cardiac status. Would recommend continuing antibiotics during this admission. Currently, patient is not having any abdominal pain and states his improvements have significantly improved. Should he have any recurrent pain episodes, we can consider cholecystostomy tube as a measure until cardiac status is improved. Currently, patient is asymptomatic. No plan an acute surgical intervention.
--- NOTE | 2024-09-12 17:35 | P.CONS ---
History of Present Illness - Reason for Consult Consult date: 09/12/24 polycythemia Requesting physician: Christiano E Sheet - Chief Complaint SOB - History of Present Illness Patient is a 54-year-old male who presented the emergency room with progressing shortness of breath and weakness over the last 10 days. Patient currently being treated for suspected cholecystitis with IV antibiotics. Also new onset atrial fibrillation and heart failure. BERNRAD showed ejection fraction of 10 to 15%. Also underwent cardioversion with successful conversion to normal sinus rhythm. Cardiac catheterization showed patent coronary artery disease. Today's visit patient does report improvement in shortness of breath. He denies history of smoking, but states he had intermittently smoked marijuana in the past but that he quit many years ago. He does endorse environmental exposures at work, with frequent exposure to car and machinery fumes. Denies history of sleep apnea. Upon admit CBC showed hemoglobin 16.8, hematocrit 50.1. Today hemoglobin 18.5 with hematocrit 54.1. Patient denies any known history of polycythemia. There were no previous labs to trend. Review of Systems 10 point ROS is negative except as stated in the HPI Past Medical History Past Medical History: Atrial Fibrillation, Cancer Additional Past Medical History / Comment(s): cholecystitis. squamous cell carcinoma of throat remission since 2007 or 2008 History of Any Multi-Drug Resistant Organisms: None Reported Past Surgical History: Orthopedic Surgery Past Anesthesia/Blood Transfusion Reactions: No Reported Reaction Past Psychological History: No Psychological Hx Reported Smoking Status: Never smoker Past Alcohol Use History: Occasional Past Drug Use History: None Reported - Past Family History Mother Family Medical History: Diabetes Mellitus Father Family Medical History: Coronary Artery Disease (CAD) Medications and Allergies Home Medications Medication Instructions Recorded Confirmed Type Vericiguat [Verquvo] 2.5 mg PO DAILY 90 Days #90 tablet 09/10/24 Rx Allergies Allergy/AdvReac Type Severity Reaction Status Date / Time Penicillins Allergy Unknown Verified 09/07/24 14:38 Physical Exam Vitals: Vital Signs Temp Pulse Resp BP Pulse Ox 09/12/24 11:55 97.5 F L 89 16 127/92 92 L 09/12/24 09:00 97.7 F 86 16 116/85 96 09/12/24 04:00 98.1 F 62 16 120/62 96 09/11/24 23:04 68 16 94/64 98 09/11/24 19:39 98.1 F 75 16 121/78 98 09/11/24 15:55 80 16 127/91 97 Intake and Output 09/12/24 09/12/24 09/12/24 06:59 14:59 22:59 Intake Total 600 Balance 600 Intake: Oral 600 Other: Voiding Method Toilet # Voids 3 Weight 81.6 kg - Constitutional General appearance: average body habitus, no acute distress - EENT Eyes: anicteric sclerae, EOMI ENT: hearing grossly normal - Respiratory breathing is even and unlabored - Cardiovascular skin warm and dry - Gastrointestinal General gastrointestinal: soft - Integumentary Integumentary: no cyanotic, no jaundiced - Neurologic Neurologic: CNII-XII intact - Musculoskeletal Musculoskeletal: strength equal bilaterally - Psychiatric Psychiatric: A&O x's 3 Results CBC & Chem 7: 09/12/24 06:14 09/12/24 06:14 Labs: Abnormal Lab Results - Last 24 Hours (Table) 09/12/24 09/12/24 Range/Units 06:14 06:14 RBC 5.93 H (4.40-5.60) 10*6/uL Hgb 18.5 H (13.0-17.0) g/dL Hct 54.1 H (39.6-50.0) % Glucose 105 H (74-99) mg/dL Delta Bilirubin 0.3 H (0.0-0.2) mg/dL AST 86 H (17-59) U/L ALT 76 H (4-49) U/L Total Protein 5.6 L (6.3-8.2) g/dL Assessment and Plan (1) Polycythemia Current Visit: Yes Status: Acute Priority: Low Code(s): D75.1 - SECONDARY POLYCYTHEMIA SNOMED Code(s): 402122934 (2) Atrial fibrillation Current Visit: Yes Status: Acute Priority: High Code(s): I48.91 - UNSPECIFIED ATRIAL FIBRILLATION SNOMED Code(s): 02153757 Plan: New onset A-fib, Heart failure: Presented the emergency room with progressing shortness of breath and weakness over the last 10 days. -Found to be in new onset atrial fibrillation and heart failure. BERNARD showed ejection fraction of 10 to 15%. Also underwent cardioversion with successful conversion. Cardiac catheterization showed patent coronary artery disease. -Defer management to cardiology team Today's visit patient does report improvement in shortness of breath Cholecystitis: -Abdominal ultrasound showing cholelithiasis with diffuse wall thickening of the gallbladder. IV antibiotics started for suspected cholecystitis -General Surgery following no plans for surgical intervention at this time Polycythemia: Denies history of smoking, but states he had intermittently smoked marijuana in the past but that he quit many years ago. He does endorse environmental exposures at work, with frequent exposure to car and machinery fumes. Denies history of sleep apnea. -Upon admit CBC showed hemoglobin 16.8, hematocrit 50.1. Today hemoglobin 18.5 with hematocrit 54.1. Denies any known history of polycythemia. There were no previous labs to trend. -Noted increase in hgb/hct likely due to newly diagnosed severe heart failure ( EF 10-15%), and new onset a-fib rvr, with possible component of infection/inflammation. Would consider this to be secondary polycythemia, with improvement in hgb/hct as underlying conditions are treated. If persisting despite treatment, pt can f/u outpt for further evaluation to r/o primary polycythemia
--- NOTE | 2024-09-13 02:23 | P.PN ---
Subjective This is a pleasant 54 years old male with no significant past medical history. He has previous history of A-fib and squamous cell cancer of the throat in 2008. Presents because of he describes as stomach pain, 6/10 in the right upper quadrant nonradiating like someone punching him in the gut as he describes. He has not been eating for the last 3 days but with no vomiting. He reports diarrhea once a day Complains from exertional dyspnea but no chest pain no coughing No headache dizziness weakness numbness no dysuria urgency He drinks alcohol occasionally but he does not smoke or uses substances. He was transferred from [facility] Currently getting IV antibiotics and fluids and heparin 09/08 Patient with GI symptoms: Nausea Unable to eat Surgery team plan for cardiology clearance. Patient present with A-fib, Cardizem switched to oral medication with Cardizem and metoprolol Still on IV heparin pending echocardiogram 09/09 Patient sitting at bedside with no chest pain or dyspnea No abdominal pain or significant tenderness He is getting heparin drip and normal saline 75 mL/h. Also is on ceftriaxone and Flagyl. Pending echocardiogram to decide about heparin drip preop evaluation Discussed plan with the patient and he is agreeable 09/10 Patient had coronary angiogram of earlier this morning showing patent coronary arteries but dilated nonischemic severe cardiomyopathy with ejection fraction 10 to 15% Patient was placed on IV Lasix 40 mg twice daily and Entresto. Continues on amiodarone and metoprolol heparin drop was stopped and changed to eliquis, dc aspirin per graduate internship Because of her severe cardiomyopathy surgery was held and patient currently continued to be treated empirically with antibiotic. Currently on ceftriaxone and Flagyl 09/11 Patient is awake alert Sitting at the bedside no abdominal pain or tenderness. Patient was found to have severe dilated cardiomyopathy with impaired LV function down to 10 to 15%. No significant chest pain or dyspnea. However patient started on cardiac medication including metoprolol and Entresto as well as Lipitor and Eliquis. Patient cannot afford Eliquis because he does not have insurance, warfarin may be considered as inpatient or an outpatient if patient provided with 1 month supply of free coupon for Eliquis. Patient prefers the latter choice with 1 month free supply. Patient also started on torsemide 10 mg daily. Amiodarone lowered to 200 mg. Patient also with polycythemia 09/12 Patient with no chest pain or dyspnea Acute cholecystitis improving and cleared by surgeon Patient will require LifeVest. Family brought $350 down payment for the Li feVest. And social director consult placed for lack of insurance Patient hematology team consult for high hemoglobin level suggested by cardiology team Continue with antibiotic ceftriaxone and Flagyl Continue with Eliquis. Patient prefers to continue with 1 month of free coupon and then follow-up outpatient to switch to a cheaper choices. Objective - Vital Signs Vital signs: Vital Signs Temp 97.7 F 09/12/24 09:00 Pulse 86 09/12/24 09:00 Resp 16 09/12/24 09:00 BP 116/85 09/12/24 09:00 Pulse Ox 96 09/12/24 09:00 FiO2 Intake & Output 09/11/24 09/12/24 09/12/24 18:59 06:59 18:59 Intake Total 866 240 Output Total 965 Balance -99 240 Weight 81.6 kg Intake: Intake, IV Titration 150 Amount cefTRIAXone 2 gm In 50 Sodium Chloride 0.9% 50 ml @ 100 mls/hr IVPB Q24H [facility] Rx#:[id number] metroNIDAZOLE-NS PMX 500 100 mg In Saline 1 100ml.bag @ 100 mls/hr IVPB Q8HR [facility] Rx#:[id number] Oral 716 240 Output: Urine 965 Other: Voiding Method Toilet Toilet # Voids 3 - Exam GENERAL: The patient is alert and oriented x3, not in any acute distress. Well developed, well nourished. HEENT: Pupils are round and equally reacting to light. EOMI. No scleral icterus. No conjunctival pallor. Normocephalic, atraumatic. No pharyngeal erythema. No thyromegaly. CARDIOVASCULAR: S1 and S2 present. No murmurs, rubs, or gallops. PULMONARY: Chest is clear to auscultation, no wheezing , no crackles. ABDOMEN: Soft, nontender, nondistended, normoactive bowel sounds. No palpable organomegaly. MUSCULOSKELETAL: No joint swelling or deformity. EXTREMITIES: No cyanosis, clubbing, or pedal edema. NEUROLOGICAL: Gross neurological examination did not reveal any focal deficits. SKIN: No rashes. no petechiae. - Labs CBC & Chem 7: 09/12/24 06:14 09/12/24 06:14 Labs: Abnormal Lab Results - Last 24 Hours (Table) 07/13/25 07/13/25 Range/Units 06:14 06:14 RBC 5.93 H (4.40-5.60) 10*6/uL Hgb 18.5 H (13.0-17.0) g/dL Hct 54.1 H (39.6-50.0) % Glucose 105 H (74-99) mg/dL Delta Bilirubin 0.3 H (0.0-0.2) mg/dL AST 86 H (17-59) U/L ALT 76 H (4-49) U/L Total Protein 5.6 L (6.3-8.2) g/dL Assessment and Plan Assessment: Acute cholecystitis dilated nonischemic severe cardiomyopathy with ejection fraction 10 to 15% Atrial fibrillation History of squamous cancer of the throat in 2008, currently on remission Plan: S/p cardiac cath showing patent coronary arteries. Heparin drip was held. Patient was started on torsemide and Entresto by graduate internship Continue with metoprolol and amiodarone Cardiology team consult following closely Continue with antibiotic ceftriaxone and Flagyl Continue with Eliquis Surgery team consult, with no plan for surgical intervention given severe cardiomyopathy Diet as tolerated Pain management Will consult social director for lack of insurance Patient advised extensively against leaving [place], he verbalized understanding and agrees to stay for now Labs and medication were reviewed.. Continue same treatment. Continue with symptomatic treatment. Resume home medication. Monitor labs and vitals. DVT and GI prophylaxis. Further recommendations as per clinical course of the patient DVT prophylaxis: heparin GI Prophylaxis: Pepcid PT/OT: Pending Prognosis is guarded
[2024-09-13 08:50] VITALS: BP 107/73; PULSE 89; RESP 18; TEMP 97.7
--- NOTE | 2024-09-13 11:32 | P.PN ---
Subjective Progress Note Date: 09/13/24 SURGICAL PROGRESS NOTE CHIEF COMPLAINT: Abdominal pain HISTORY OF PRESENT ILLNESS: Patient denies any abdominal pain. Denies any nausea or vomiting. Currently tolerating regular diet. Surgical service following for cholecystitis. Afebrile. WBC 7.92 PHYSICAL EXAM: VITAL SIGNS: Reviewed. GENERAL: Well-developed in no acute distress. ABDOMEN: Soft. Nondistended. Nontender. No rebound or guarding noted. NEUROLOGIC: Alert and oriented. Cranial nerves II through XII grossly intact. ASSESSMENT: 1. Cholecystitis 2. New onset atrial fibrillation 3. Cardiomyopathy with a EF of 10 to 15% PLAN: - Patient tolerating diet with no right upper quadrant abdominal pain. No surgical intervention planned at this time secondary to patient's cardiac status. Continue antibiotics. Should patient have any recurrent pain episodes would consider cholecystostomy tube until cardiac clearance has improved. 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 Signing provider agrees with the documented findings, assessment, and plan of care. Objective - Vital Signs Vital signs: Vital Signs Temp 97.7 F 09/13/24 08:00 Pulse 89 09/13/24 08:00 Resp 18 09/13/24 08:00 BP 107/73 09/13/24 08:00 Pulse Ox 98 09/13/24 08:00 FiO2 Intake & Output 09/12/24 09/13/24 09/13/24 18:59 06:59 18:59 Intake Total 2190 Balance 2190 Weight 80.6 kg Intake: Intake, IV Titration 150 Amount cefTRIAXone 2 gm In 50 Sodium Chloride 0.9% 50 ml @ 100 mls/hr IVPB Q24H [facility] Rx#:[id number] metroNIDAZOLE-NS PMX 500 100 mg In Saline 1 100ml.bag @ 100 mls/hr IVPB Q8HR [facility] Rx#:[id number] Oral 2040 Other: Voiding Method Toilet Toilet # Voids 3 - Labs CBC & Chem 7: 09/12/24 06:14 09/12/24 06:14
[2024-09-13 15:06] VITALS: BMI 26.2
--- NOTE | 2024-09-16 16:24 | P.DS ---
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 Social Work Has been Working with This Patient and He Is Awaiting Medicaid Application Pending. He is optimized on current cardiac therapy Entresto was preferred however patient does not currently have health insurance and so discussed this with cardiology and he was discharged on losartan and Aldactone with oral torsemide. He is also on atorvastatin, metoprolol. He will discharge on Eliquis 5 mg twice daily and was provided with a free 30-day coupon on discharge. He will likely need to switch to a cost effective option like warfarin once his 30 days are off. Patient will continue a course of oral antibiotic therapy with 5 additional days of Ceftin and metronidazole for the acute cholecystitis and will require close monitoring with general surgery on an outpatient basis. 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 Rico in 1 week postdischarge. Patient does not currently have a primary care provider and was referred to the residency clinic. Information was also provided for local PCPs. Total time taken in discharge planning greater than 35 minutes. Hospital Course This is a pleasant 54 years old male with previous history of A-fib and squamous cell cancer of the throat in 2008. Presents because of he describes as stomach pain, 6/10 in the right upper quadrant nonradiating like someone punching him in the gut as he describes. He has not been eating for the last 3 days but with no vomiting. He reports diarrhea once a day. Patient complains of exertional dyspnea but not having no chest pain or cough. He drinks alcohol occasionally but reports no smoking or substance use. He was brought down from [facility]. He was diagnosed with an acute cholecystitis. Cardiology was consulted for surgical clearance for gallbladder surgery. His echocardiogram reveals an ejection fraction of 10% severely reduced global LV systolic function with no evidence of any thrombus on contrast imaging there is moderate biatrial dilatation and moderate mitral regurgitation with a small pericardial effusion. Patient underwent transesophageal echocardiogram revealing no evidence of thrombus in the left atrium or left atrial appendage there is an EF of 10 to 15%. A small right posterior pericardial effusion severe left atrial dilatation and a mild functional mitral regurgitation. Because of the new findings of the decreased ejection fraction patient underwent cardiac catheterization which reveals patent coronary arteries with normal left ventricular end-diastolic pressure with a dilated nonischemic cardiomyopathy of an EF of 10 to 15%. Patient was optimized medically by cardiology was recommended initially to start Entresto however patient does not currently have health insurance. Because of this he will he will be started on losartan and Aldactone for the cardiomyopathy. Additionally he is on Eliquis twice daily for the new findings of the atrial fibrillation. Heparin drip was discontinued. He has continued on oral amiodarone. He will also continue on oral diuretics with weight on discharge. General surgery has follow with this patient and as patient was not cleared cardiac mallory for surgery he has been treated with IV antibiotics and has had significant clinical improvement in his abdominal pain and has been tolerating diet. Hematology also evaluated the patient because of the eleazar ycythemia they feel that this could be because of the cardiomyopathy due to inflammation in flexion I would recommend to treat these underlying conditions and follow-up in the office for further evaluation to rule out a primary polycythemia. His most recent blood work reveals a white blood cell count of 7.92 hemoglobin 18.5, platelet count of 214 sodium of 137 potassium 3.7, BUN of 15 creatinine of 0.91. His bilirubin is 0.6, AST of 86 ALT of 76 alk phos of 50. His troponin level has not been elevated. He has been afebrile maintaining oxygen saturations well on room air. He has been recommended for LifeVest due to his risk of sudden cardiac . Patient will be able to come up with the sandoval down payment once he is discharged from the hospital and has arrangements made with [facility] representative already to coordinate receiving a LifeVest upon discharge. Please see medication reconciliation for a list of current medications. Thank you for allowing us to participate in the care of this patient. The impression and plan of care has been dictated by Ann Ashford, Nurse Practitioner as directed. Dr. Uma MD I have performed a history and physical examination and medical decision making of this patient, discussed the same with the dictator, and agree with the dictators assessment and plan as written, documented as a scribe. Based on total visit time, I have performed more than 50% of this visit. Patient Condition at Discharge: Fair Plan - Discharge Summary Discharge Rx Participant: No New Discharge Prescriptions: New Torsemide [Demadex] 10 mg PO DAILY@1600 #30 tab Metoprolol Succinate (ER) [Toprol XL] 25 mg PO DAILY #30 tab Apixaban [Eliquis] 5 mg PO BID #60 tab Losartan [Cozaar] 25 mg PO DAILY #30 tab Spironolactone [Aldactone] 25 mg PO DAILY #30 tablet cefuroxime axetiL [Ceftin] 500 mg PO BID 5 Days #10 tab Amiodarone [Cordarone] 200 mg PO DIRECTED 30 Days #37 tab Atorvastatin [Lipitor] 40 mg PO HS #30 tab Pantoprazole [Protonix] 40 mg PO DAILY #30 tab metroNIDAZOLE [Flagyl] 500 mg PO TID 5 Days #15 tab Discharge Medication List Amiodarone [Cordarone] 200 mg PO DIRECTED 30 Days #37 tab 09/13/24 [Rx] Apixaban [Eliquis] 5 mg PO BID #60 tab 09/13/24 [Rx] Atorvastatin [Lipitor] 40 mg PO HS #30 tab 09/13/24 [Rx] Losartan [Cozaar] 25 mg PO DAILY #30 tab 09/13/24 [Rx] Metoprolol Succinate (ER) [Toprol XL] 25 mg PO DAILY #30 tab 09/13/24 [Rx] Pantoprazole [Protonix] 40 mg PO DAILY #30 tab 09/13/24 [Rx] Spironolactone [Aldactone] 25 mg PO DAILY #30 tablet 09/13/24 [Rx] Torsemide [Demadex] 10 mg PO DAILY@1600 #30 tab 09/13/24 [Rx] cefuroxime axetiL [Ceftin] 500 mg PO BID 5 Days #10 tab 09/13/24 [Rx] metroNIDAZOLE [Flagyl] 500 mg PO TID 5 Days #15 tab 09/13/24 [Rx] Follow up Appointment(s)/Referral(s): Paul Rico MD [Medical Doctor] - 1 Week [facility] [REFERRING] - 1-2 Days (Follow up at residency clinical to establish for primary care ) None,Stated [Primary Care Provider] - 1-2 days Staci Barker DO [Doctor of Osteopathic Medicine] - 1 Week (General surgery follow up) Patient Instructions/Handouts: A-fib (Atrial Fibrillation) (DC) Activity/Diet/Wound Care/Special Instructions: Follow up with general surgery outpatient If abdominal comes back notify surgeon on come in to the ER. Surgeon recommending cholecystostomy tube placement vs. cholecystectomy. Continue with prior arrangements with the [facility] representative to obtain the lifevest Continue eliquis twice daily with the free coupon Afterwards need to follow up with cardiology regarding transition to warfarin Discharge Disposition: HOME WITH HOME HEALTH SERVICES
== END 2024-09-13 15:12 | disposition home health service (06) | DRG 287 ==
LOC: EC 12:07 → 3SCARD 13:30
PROVIDERS: ADMIT Internal Medicine; ATTEND Internal Medicine
PROC: 5A2204Z Restoration of Cardiac Rhythm, Single (ICD-10-PCS; principal; 2024-09-09 07:30)
PROC: B24BZZ4 Ultrasonography of Heart with Aorta, Transesophageal (ICD-10-PCS; principal; 2024-09-09 07:30)
PROC: B2111ZZ Fluoroscopy of Multiple Coronary Arteries using Low Osmolar Contrast (ICD-10-PCS; 2024-09-10)
PROC: 4A023N7 Measurement of Cardiac Sampling and Pressure, Left Heart, Percutaneous Approach (ICD-10-PCS; 2024-09-10)
DX: I48.19 Other persistent atrial fibrillation (principal); K80.00 Calculus of gallbladder with acute cholecystitis without obstruction; I50.9 Heart failure, unspecified; I08.1 Rheumatic disorders of both mitral and tricuspid valves; I42.0 Dilated cardiomyopathy; D75.1 Secondary polycythemia; I25.10 Atherosclerotic heart disease of native coronary artery without angina pectoris; F41.9 Anxiety disorder, unspecified; Z92.21 Personal history of antineoplastic chemotherapy; Z59.71 Insufficient health insurance coverage; Z85.819 Personal history of malignant neoplasm of unspecified site of lip, oral cavity, and pharynx; Z92.3 Personal history of irradiation; Z88.0 Allergy status to penicillin; Z82.49 Family history of ischemic heart disease and other diseases of the circulatory system
CPT/HCPCS: 76705; 80048; 80053; 80061; 80076; 83036; 83735; 83880; 84439; 84443; 84481; 84484; 85025; 85610; 85730; 92960; 93306; 93312; 93320; 93325; 93458; 96365; 96366; 96368; 96375; 99291